=== PATIENT | female | born 1985 | race Caucasian/White ===

== ENCOUNTER → 2017-11-07 | Outpatient (CLI) | payer OTHER | END | disposition home or self-care (01) | LOC: C.LAB1850 10:55 | PROVIDERS: ATTEND Physician Assistant | DX: N92.6 Irregular menstruation, unspecified (principal) ==

== ENCOUNTER → 2017-11-07 | Outpatient (CLI) | payer OTHER | END | disposition home or self-care (01) | LOC: C.PAPS 15:43 | PROVIDERS: ATTEND Physician Assistant | DX: Z01.419 Encounter for gynecological examination (general) (routine) without abnormal findings (principal) ==

== ENCOUNTER 2021-11-02 10:02 | Inpatient (IN) ==
[2021-11-02] MEDS ORDERED: LORazepam 2 MG/1 ML VIAL ONE ×3 (10:11→17:07)
[2021-11-02] MEDS ORDERED: RAPID SEQUENCE INDUCTION BAG ONE (10:13)
[2021-11-02] MEDS ORDERED: PROPOFOL IV EMULSION 10 MG/ML 100 ML VIAL IV ONE (10:22)
[2021-11-02] MEDS ORDERED: STAT IV Infusion **Titration per Protocol STA (10:26)
[2021-11-02] MEDS ORDERED: SODIUM CHLORIDE 0.9% 500 ML IV STA (10:26)
[2021-11-02] MEDS ORDERED: propofoL 1,000 MG/100 ML VIAL IV SCH (10:30)
[2021-11-02] MEDS ORDERED: VECURONIUM BROMIDE 10 MG VIAL IV ONE ×2 (10:34→13:53)
[2021-11-02 10:37] LABS: Basophils # (auto) 0.04 K/uL (0-0.2); Basophils % (auto) 0.5 %; Eosinophils # (auto) 0.09 K/uL (0-0.5); Eosinophils % (auto) 1.1 %; Hematocrit (blood only) 39.2 % (37-47); Immature Granulocytes # (auto) 0.02 K/uL (0.00-0.02); Immature Granulocytes % (auto) 0.2 %; Lymphocytes % (auto) 23.4 %; Mean Corpuscular Hemoglobin 32.2 pg (25-34); Mean Corpuscular Hgb Conc 35.7 g/dL (32-36); Mean Corpuscular Volume 90.1 fL (80-100); Mean Platelet Volume 9.8 fL (7.4-10.4); Monocytes # (auto) 0.66 K/uL (0.11-0.59); Monocytes % (auto) 7.7 %; Neutrophils # (auto) 5.75 K/uL (1.4-6.5); Neutrophils % (auto) 67.1 %; Platelet Count 289 K/uL (130-400); RDW Coefficient of Variation 11.9 % (11.5-14.5); RDW Standard Deviation 39.2 fL (36.4-46.3); Red Blood Count 4.35 M/uL (4.2-5.4); White Blood Count 8.56 K/uL (4.8-10.8)
[2021-11-02 10:38] LABS: iSTAT Creatinine 0.7 mg/dl (0.6-1.3); iSTAT Hemoglobin 13.6 g/dl (12.0-16.0); iSTAT Ionized Calcium 1.14 mmol/l (1.12-1.32); iSTAT Potassium 3.7 mmol/L (3.3-5.0)
[2021-11-02 10:49] LABS: Prothrombin Time 10.9 Seconds (9.0-12.0)
[2021-11-02 10:59] LABS: Alanine Aminotransferase 22 U/L (7-52); Albumin Globulin Ratio 1.7 (0.9-2); Albumin Level 3.5 gm/dl (3.4-5.0); Alkaline Phosphatase 43 U/L (34-104); Anion Gap 8 (3-11); Aspartate Aminotransferase 29 U/L (13-39); BUN Creatinine Ratio 13.8 (10-20); Bilirubin,Total 0.4 mg/dl (0.2-1.0); Blood Urea Nitrogen 11 mg/dl (6-23); Calcium 8.2 mg/dl (8.5-10.1); Carbon Dioxide 23 mmol/L (21-32); Chloride 106 mmol/L (98-107); Est GFR (African American) 60.5 ml/min; Est GFR (Non-African American) 52.2 ml/min; Globulin 2.1 gm/dl (2.5-4.0); Glucose 130 mg/dl (70-99(Fasting)); Lipase 18 U/L (11-82); Potassium 3.7 mmol/L (3.5-5.1); Sodium 137 mmol/L (136-145); Total Protein 5.6 gm/dl (6.0-8.3); Troponin I < 0.03 ng/ml (0-0.04)
--- NOTE | 2021-11-02 11:01 | CT Scan Report ---
HEAD CT NONCONTRAST CT DOSE: HISTORY: Fall. head injury TECHNIQUE: Multiaxial CT images of the head were performed without the use of intravenous contrast. A utomated exposure control was utilized for this study. A dose lowering technique was utilized adheri ng to the principles of ALARA. Comparison: None. Findings: The paranasal sinuses and mastoid air cells are clear. The calvarium and skull base are int act. The ventricles and sulci are within normal limits. There is no mass, hematoma, midline shift, or acute infarct. Left frontal scalp swelling/hematoma. Impression: No acute intracranial abnormality. Left frontal scalp injury. ACT 112: Negative or not required by law. Electronically signed by: Yvan Teresa M.D. 11/02/2021 10:59 AM
--- NOTE | 2021-11-02 11:01 | CT Scan Report ---
CT OF THE CERVICAL SPINE WITHOUT CONTRAST CLINICAL HISTORY: fall COMPARISON STUDY: No previous studies for comparison. TECHNIQUE: Helical axial images of the cervical spine were obtained without IV contrast. Sagittal a nd coronal reconstructions were viewed. Automated exposure control was utilized for the study. A do se lowering technique was utilized adhering to the principles of ALARA. FINDINGS: There is reversal of the normal cervical lordosis. Vertebral body heights are maintained. N o acute cervical spine fracture or subluxation is present. There is no prevertebral edema. Facet join ts are intact. Endotracheal tube is partially imaged. C4 and C5 are partially fused. Osteophytosis a t C5-C6 is present. IMPRESSION: No acute cervical spine fracture or subluxation. ACT 112: Negative or not required by law. Electronically signed by: Richar Amaya M.D. 11/02/2021 10:59 AM
--- NOTE | 2021-11-02 11:24 | CT Scan Report ---
CT chest diagnostic wo con CT DOSE: HISTORY: Fall. Unresponsive. injury head TECHNIQUE: Multiaxial CT images of the chest were performed without contrast. A dose lowering techni que was utilized adhering to the principles of ALARA. COMPARISON: None. FINDINGS: Endotracheal tube terminates 2.5 cm from the jomar. Otherwise, the central airways are pat ent. No pneumothorax. Mild dependent changes seen within the lungs posteriorly. No pleural effusions. No fractures within the visualized osseous structures. Please refer to same day abdomen and pelvis C T for further evaluation of the abdominal structures. Normal esophagus. Normal caliber thoracic aorta . The heart is normal in size. No pericardial effusion. No mediastinal hematoma or lymphadenopathy. IMPRESSION: 1. No acute traumatic process within the chest. 2. Endotracheal tube terminates 2.5 cm from the jomar. ACT 112: Negative or not required by law. Electronically signed by: Yvan Teresa M.D. 11/02/2021 11:23 AM
--- NOTE | 2021-11-02 11:24 | CT Scan Report ---
CT abd pelvis wo con CLINICAL HISTORY: Status post fall with head injury. Patient unresponsive. COMPARISON STUDY: No previous studies for comparison. CT DOSE: TECHNIQUE: Standard CT of the Abdomen and Pelvis was performed without IV contrast. The patient did not receive oral contrast. A dose lowering technique was utilized adhering to the principles of GUSTAVO Faust. FINDINGS: This is a limited examination due to breathing motion artifact and the patient's arms being by her side. Lung base: The lung bases are clear. Abdominal cavity: There is no evidence for abdominal mass, adenopathy or ascites. Liver: The liver is homogeneous in attenuation on these limited noncontrast images..There are 3, appr oximately 1 cm low-attenuation lesions within the liver parenchyma which are suspicious for cysts. Ho wever, they cannot be fully evaluated by this study. Spleen: The spleen is homogeneous in attenuation on these limited noncontrast images. Pancreas: The pancreas is homogeneous in attenuation on these limited noncontrast images. Gall Bladder: The gallbladder is well distended with no evidence for cholelithiasis, wall thickening or pericholecystic edema.. Adrenal glands: The adrenal glands are normal in size and attenuation on these limited noncontrast im ages. Kidneys: The kidneys are homogeneous in attenuation on these limited noncontrast images. There is no evidence for gross renal mass, calculus or hydronephrosis bilaterally. Bowel: There is evidence for a small hiatal hernia. The bowel loops are normally placed within the ab domen and pelvis without evidence for dilatation or obstruction. There is no evidence for mass lesion . There is mild fecal stasis without impaction or obstruction. There are no inflammatory changes pres ent. There is no evidence for free air. The appendix is not visualized. Bladder: Bauman catheter is present within the bladder. : Uterus appears enlarged. This is also not well evaluated by this study. Vasculature: There is no evidence for focal aneurysmal dilatation of the abdominal aorta. Osseous structures: There is no acute osseous pathology. IMPRESSION: 1. Limited study due to breathing motion artifact and the patient's arms being by her side. 2. Otherwise, no definite acute intra-abdominal or pelvic abnormality on these limited noncontrast im ages. 3. Nonacute findings are delineated above. ACT 112: Negative or not required by law. Electronically signed by: Robert Stewart M.D. 11/02/2021 11:23 AM
[2021-11-02 11:33] LABS: Appearance Urine Cloudy (Clear); Bacteria Urine Automated Negative (Negative); Bilirubin Urine Negative (Negative); Blood Urine Negative (Negative); Color Urine Yellow; Glucose Urine UA Negative (Negative); Ketones Urine 1+ (Negative); Leukocyte Esterase Urine Negative (Negative); Nitrite Urine Negative (Negative); Specific Gravity Urine 1.023 (1.000-1.030); Urobilinogen Urine Negative (Negative); pH Urine >= 9.0 (4.5-7.5)
[2021-11-02 11:36] LABS: Protein Urine Trace (Negative)
[2021-11-02 11:45] LABS: Amorphous Sediment Urine Present (None Prsent)
[2021-11-02 11:46] LABS: Cast Urine Automated 0 /lpf (0-5); Mucus Urine Present (None Prsent)
[2021-11-02] MEDS: PROPOFOL BOLUS FROM BAG IV PRN ×2 (11:53→12:11)
[2021-11-02 11:55] LABS: Amphetamines+Metham, Urine Neg (Neg); Barbiturates, Urine Neg (Neg); Benzodiazepine, Urine Neg (Neg); Cocaine, Urine Neg (Neg); MDMA (Ecstacy), Urine Neg (Neg); Methadone, Urine Neg (Neg); Opiate, Urine Neg (Neg); Phencyclidine, Urine Neg (Neg)
[2021-11-02] MEDS ORDERED: MIDAZOLAM HCL 5 MG/ML 1 ML VIAL IV STA (12:29)
[2021-11-02] MEDS ORDERED: DIPHTHERIA/TETANUS/PERTUSSIS 0.5 ML SYR/VIAL IM ONE (12:33)
--- NOTE | 2021-11-02 12:51 | Critical Care Consultation ---
Date of Consultation November 02, 2021 Assessment & Plan (1) Syncope and collapse: Reason Critically Ill: Acute syncope and collapse with altered mental status/acute encephalopathy PLAN: Neuro: Acute encephalopathy -Wean sedation -Consider advanced imaging: MRI and EEG -CT scan unremarkable Cervical collar -CT C-spine within normal limits -Attempt to clinically discontinue cervical collar later Resp: Intubation to facilitate medical evaluation -minimal vent settings, patient extubated in the ED -If mental status does not improve would consider reintubation to facilitate MRI and possible lumbar puncture CV: Syncope -echocardiogram and trend troponins Fluids/Renal: Hypocarbia - trend with possible repeat later ID: Afebrile, no leukocytosis -Monitor fever curve GI/Nutrition: NPO Heme: DVT prophylaxis: SCDs Endocrine: ICU hyperglycemia protocol TSH pending Skin: -Local wound care -Tetanus updated Vascular access: PIV Code Status: Full Disposition: ICU (2) Acute encephalopathy: I have personally spent 65 minutes of critical care time in the direct management of this patient. This is a life/limb threatening event. This includes time spent evaluating patient, direct bedside care, chart review, placing orders, interpretation of diagnostic studies, discussion with consultants, patient, and/or family members regarding treatment decisions, as well as other required patient management activities. This time is exclusive of all separately billable procedures, and teaching time and separate from and in addition to any other critical care service time. History of Present Illness Reason for Consultation: Syncope with acute encephalopathy requiring intubation to facilitate work-up Requesting Physician: Damon Attending Physician: Nixon velez History of Present Illness History is obtained from ED provider, significant other at bedside, prior records. For report patient is a 35-year-old female who was in her normal state of health without significant past medical history who went for a walk with her dog this morning. Bystanders reported that the patient suddenly collapsed. It was reported there was no CPR, EMS was contacted and she required intramuscular Ativan for some chemical restraint to facilitate transport to the emergency department. While in the emergency department patient was combative and not redirectable to facilitate work-up patient was intubated and labs and CT scans were obtained. For the patient significant other at the bedside she does not have any medical problems, was not complaining of headache today, no fever, no chest pain no shortness of breath. She is a non-smoker, does not drink alcohol, does not use recreational drugs. He is uncertain of when her last menstrual period was. He is not aware of any significant family history which includes questions of seizures, sudden cardiac , from unexplained causes. He is unclear of when her last tetanus shot was. Allergies Allergy/AdvReac Type Severity Reaction Status Date / Time No Known Drug Allergies Allergy Verified 11/02/21 11:36 Home Medications Medication Instructions Recorded Confirmed Type ibuprofen 200 mg tablet 600 mg PO QID PRN 10/02/18 11/02/21 History multivitamin (Daily Multi-Vitamin) 1 tab PO DAILY 03/30/19 11/02/21 History Patient History Medical History Anemia Elevated serum hCG History of chicken pox Surgical History History of salpingectomy left- ectopic S/P wisdom tooth extraction Family History Mother Depression Ovarian cyst Grandfather (Maternal) Hyperlipidemia Hypertension Grandmother (Paternal) Breast cancer Grandmother (Maternal) Diabetes Denies family history of Ovarian cancer Colorectal cancer Social History Smoking Status: Unknown if ever smoked Hx Alcohol Use: No Hx Substance Use: No Preferred Language: [place] marital status: Feels Safe at Home: Yes Review of Systems Review of Systems: Unobtainable due to endotracheal tube Physical Exam Physical Exam: General: Sedated. Glascow Coma Scale: Eyes: 2, Verbal 1T, Motor 5, Total 8T Skin: Warm, dry. Abrasions to left orbital ridge Head: Contusion left orbital ridge Ears, nose, mouth and throat: airway obscured by endotracheal tube Cardiovascular: Normal peripheral perfusion, S1-S2, normal sinus rhythm bedside monitor Respiratory: no respiratory distress Gastrointestinal: Non distended Musculoskeletal: Small ecchymoses left upper extremity Results & Data Results & Data ([facility]) Vital Signs (Past 12 Hours) Vital Signs Temp Pulse Resp BP Pulse Ox 11/02/21 12:17 125/65 11/02/21 12:16 99 H 21 100 11/02/21 12:15 97 H 22 99 11/02/21 12:10 91 H 15 100 11/02/21 12:05 87 17 96 11/02/21 12:02 83 18 96 11/02/21 12:01 82 16 114/88 93 11/02/21 12:00 90 16 94 11/02/21 11:56 74 14 116/70 98 11/02/21 11:55 74 15 96 11/02/21 11:50 80 13 150/75 H 99 11/02/21 11:45 85 19 129/82 100 11/02/21 11:40 81 19 132/96 100 11/02/21 11:37 100 11/02/21 11:35 82 20 124/92 100 11/02/21 11:30 88 16 135/87 100 11/02/21 11:25 91 H 14 124/85 100 11/02/21 11:20 84 14 130/84 100 11/02/21 11:15 85 14 121/85 100 11/02/21 11:10 84 14 132/90 100 11/02/21 11:05 87 14 131/91 100 11/02/21 11:00 79 14 133/86 100 11/02/21 10:55 89 14 142/96 H 100 11/02/21 10:53 86 14 131/88 100 11/02/21 10:52 83 8 L 100 11/02/21 10:36 99 H 11 L 121/78 100 11/02/21 10:35 88 11 L 11/02/21 10:32 83 14 100 11/02/21 10:30 83 27 H 139/100 100 11/02/21 10:26 75 21 115/68 97 11/02/21 10:25 74 19 76 L 11/02/21 10:23 99 H 20 147/112 H 93 11/02/21 10:20 85 16 82/57 L 97 11/02/21 10:00 34.8 C L 86 22 124/69 98 Critical Care Results & Data Vital Signs (Past 12 Hours) Vital Signs Temp Pulse Resp BP Pulse Ox 11/02/21 12:17 125/65 11/02/21 12:16 99 H 21 100 11/02/21 12:15 97 H 22 99 11/02/21 12:10 91 H 15 100 11/02/21 12:05 87 17 96 11/02/21 12:02 83 18 96 11/02/21 12:01 82 16 114/88 93 11/02/21 12:00 90 16 94 11/02/21 11:56 74 14 116/70 98 11/02/21 11:55 74 15 96 11/02/21 11:50 80 13 150/75 H 99 11/02/21 11:45 85 19 129/82 100 11/02/21 11:40 81 19 132/96 100 11/02/21 11:37 100 11/02/21 11:35 82 20 124/92 100 11/02/21 11:30 88 16 135/87 100 11/02/21 11:25 91 H 14 124/85 100 11/02/21 11:20 84 14 130/84 100 11/02/21 11:15 85 14 121/85 100 11/02/21 11:10 84 14 132/90 100 11/02/21 11:05 87 14 131/91 100 11/02/21 11:00 79 14 133/86 100 11/02/21 10:55 89 14 142/96 H 100 11/02/21 10:53 86 14 131/88 100 11/02/21 10:52 83 8 L 100 11/02/21 10:36 99 H 11 L 121/78 100 11/02/21 10:35 88 11 L 11/02/21 10:32 83 14 100 11/02/21 10:30 83 27 H 139/100 100 11/02/21 10:26 75 21 115/68 97 11/02/21 10:25 74 19 76 L 11/02/21 10:23 99 H 20 147/112 H 93 11/02/21 10:20 85 16 82/57 L 97 11/02/21 10:00 34.8 C L 86 22 124/69 98 Lab & Micro Results (Past 24 Hours) RBC 4.35 M/uL (4.2-5.4) 11/02/21 WBC 8.56 K/uL (4.8-10.8) 11/02/21 Hgb 14.0 g/dL (12.0-16.0) 11/02/21 Hct 39.2 % (37-47) 11/02/21 MCV 90.1 fL (80-100) 11/02/21 MCH 32.2 pg (25-34) 11/02/21 MCHC 35.7 g/dL (32-36) 11/02/21 RDW Standard Deviation 39.2 fL (36.4-46.3) 11/02/21 RDW Coefficient of Variation 11.9 % (11.5-14.5) 11/02/21 Plt Count 289 K/uL (130-400) 11/02/21 MPV 9.8 fL (7.4-10.4) 11/02/21 Neutrophils (%) (Auto) 67.1 % 11/02/21 Lymphocytes (%) (Auto) 23.4 % 11/02/21 Monocytes # (Auto) 0.66 K/uL (0.11-0.59) H 11/02/21 Eosinophils # (Auto) 0.09 K/uL (0-0.5) 11/02/21 Immature Granulocyte % (Auto) 0.2 % 11/02/21 Neutrophils # (Auto) 5.75 K/uL (1.4-6.5) 11/02/21 Lymphocytes # (Auto) 2.00 K/uL (1.2-3.4) 11/02/21 Monocytes # (Auto) 0.66 K/uL (0.11-0.59) H 11/02/21 Eosinophils # (Auto) 0.09 K/uL (0-0.5) 11/02/21 Basophils # (Auto) 0.04 K/uL (0-0.2) 11/02/21 Immature Granulocyte # (Auto) 0.02 K/uL (0.00-0.02) 11/02/21 Na 137 mmol/L (136-145) 11/02/21 K 3.7 mmol/L (3.5-5.1) 11/02/21 Cl 106 mmol/L (98-107) 11/02/21 CO2 23 mmol/L (21-32) 11/02/21 Anion Gap 8 (3-11) 11/02/21 BUN 11 mg/dl (6-23) 11/02/21 Creatinine 0.80 mg/dl (0.6-1.2) 11/02/21 Estimated GFR ( Amer) 60.5 ml/min 11/02/21 Estimated GFR (Non-Af Amer) 52.2 ml/min 11/02/21 BUN/Creatinine Ratio 13.8 (10-20) 11/02/21 Glu 130 mg/dl (70-99(Fasting)) H 11/02/21 Ca 8.2 mg/dl (8.5-10.1) L 11/02/21 Total Bilirubin 0.4 mg/dl (0.2-1.0) 11/02/21 AST 29 U/L (13-39) 11/02/21 ALT 22 U/L (7-52) 11/02/21 Alkaline Phosphatase 43 U/L (34-104) 11/02/21 TP 5.6 gm/dl (6.0-8.3) L 11/02/21 Albumin 3.5 gm/dl (3.4-5.0) 11/02/21 Globulin 2.1 gm/dl (2.5-4.0) L 11/02/21 Albumin/Globulin Ratio 1.7 (0.9-2) 11/02/21 Calcium Level 8.2 mg/dl (8.5-10.1) L 11/02/21 10:17 11/02/21 Prothromb Time International Ratio 1.0 (0.9-1.1) 11/02/21 10:17 11/02/21 Diagnostic Findings (Past 24 Hours) Abdomen/Pelvis CT 11/02/21 10:26 CT abd pelvis wo con CLINICAL HISTORY: Status post fall with head injury. Patient unresponsive. COMPARISON STUDY: No previous studies for comparison. CT DOSE: TECHNIQUE: Standard CT of the Abdomen and Pelvis was performed without IV contrast. The patient did not receive oral contrast. A dose lowering technique was utilized adhering to the principles of ALARA. FINDINGS: This is a limited examination due to breathing motion artifact and the patient's arms being by her side. Lung base: The lung bases are clear. Abdominal cavity: There is no evidence for abdominal mass, adenopathy or ascites. Liver: The liver is homogeneous in attenuation on these limited noncontrast images..There are 3, approximately 1 cm low-attenuation lesions within the liver parenchyma which are suspicious for cysts. However, they cannot be fully evaluated by this study. Spleen: The spleen is homogeneous in attenuation on these limited noncontrast images. Pancreas: The pancreas is homogeneous in attenuation on these limited noncontrast images. Gall Bladder: The gallbladder is well distended with no evidence for cholelithiasis, wall thickening or pericholecystic edema.. Adrenal glands: The adrenal glands are normal in size and attenuation on these limited noncontrast images. Kidneys: The kidneys are homogeneous in attenuation on these limited noncontrast images. There is no evidence for gross renal mass, calculus or hydronephrosis bilaterally. Bowel: There is evidence for a small hiatal hernia. The bowel loops are normally placed within the abdomen and pelvis without evidence for dilatation or obstruction. There is no evidence for mass lesion. There is mild fecal stasis without impaction or obstruction. There are no inflammatory changes present. There is no evidence for free air. The appendix is not visualized. Bladder: Bauman catheter is present within the bladder. : Uterus appears enlarged. This is also not well evaluated by this study. Vasculature: There is no evidence for focal aneurysmal dilatation of the abdominal aorta. Osseous structures: There is no acute osseous pathology. IMPRESSION: 1. Limited study due to breathing motion artifact and the patient's arms being by her side. 2. Otherwise, no definite acute intra-abdominal or pelvic abnormality on these limited noncontrast images. 3. Nonacute findings are delineated above. ACT 112: Negative or not required by law. Electronically signed by: Robert Stewart M.D. 11/02/2021 11:[address] 11/02/21 10:26 CT OF THE CERVICAL SPINE WITHOUT CONTRAST CLINICAL HISTORY: fall COMPARISON STUDY: No previous studies for comparison. TECHNIQUE: Helical axial images of the cervical spine were obtained without IV contrast. Sagittal and coronal reconstructions were viewed. Automated exposure control was utilized for the study. A dose lowering technique was utilized adh ering to the principles of ALARA. FINDINGS: There is reversal of the normal cervical lordosis. Vertebral body heights are maintained. No acute cervical spine fracture or subluxation is present. There is no prevertebral edema. Facet joints are intact. Endotracheal tube is partially imaged. C4 and C5 are partially fused. Osteophytosis at C5-C6 is present. IMPRESSION: No acute cervical spine fracture or subluxation. ACT 112: Negative or not required by law. Electronically signed by: Richar Amaya M.D. 11/02/2021 10:[address] 11/02/21 10:26 CT chest diagnostic wo con CT DOSE: HISTORY: Fall. Unresponsive. injury head TECHNIQUE: Multiaxial CT images of the chest were performed without contrast. A dose lowering technique was utilized adhering to the principles of ALARA. COMPARISON: None. FINDINGS: Endotracheal tube terminates 2.5 cm from the jomar. Otherwise, the central airways are patent. No pneumothorax. Mild dependent changes seen within the lungs posteriorly. No pleural effusions. No fractures within the visualized osseous structures. Please refer to same day abdomen and pelvis CT for further evaluation of the abdominal structures. Normal esophagus. Normal caliber thoracic aorta. The heart is normal in size. No pericardial effusion. No mediastinal hematoma or lymphadenopathy. IMPRESSION: 1. No acute traumatic process within the chest. 2. Endotracheal tube terminates 2.5 cm from the jomar. ACT 112: Negative or not required by law. Electronically signed by: Yvan Teresa M.D. 11/02/2021 11:[address] 11/02/21 10:[address] DOSE: HISTORY: Fall. head injury TECHNIQUE: Multiaxial CT images of the head were performed without the use of intravenous contrast. Automated exposure control was utilized for this study. A dose lowering technique was utilized adhering to the principles of ALARA. Comparison: None. Findings: The paranasal sinuses and mastoid air cells are clear. The calvarium and skull base are intact. The ventricles and sulci are within normal limits. There is no mass, hematoma, midline shift, or acute infarct. Left frontal scalp swelling/hematoma. Impression: No acute intracranial abnormality. Left frontal scalp injury. ACT 112: Negative or not required by law. Electronically signed by: Yvan Teresa M.D. 11/02/2021 10:59 AM I & O Totals 24 Hours 11/01/21 11/02/21 11/03/21 06:59 06:59 06:59 Intake Total 26.265 / 26.265 Balance 26.265 / 26.265 Cumulative 11/02/21 09:46 thru 11/02/21 12:10 Intake Total 26.265 Balance 26.265 RT Ventilator Mngmt (Last Documented) Ventilator Ordered Settings Ventilator Support Mode Assist Control 11/02/21 10:32 Respiratory Rate 21 11/02/21 12:16 Ventilator Tidal Volume 500 11/02/21 10:32 Setting Minute Ventilation 7.1 11/02/21 10:32 Positive End Expiratory 5 04/08/22 10:32 Pressure Fraction of Inspired Oxygen 60 11/02/21 10:32 Inspiratory Pressure 18 11/02/21 10:32 Machine Comment Decreased to 40% after vent check 11/02/21 10:32 Ventilator - PT Measurements Respiratory Rate 21 Exhaled Tidal Volume 498 Minute Ventilation 7.1 Peak Inspiratory Airway 18 Pressure End-Tidal CO2 38 Dynamic Lung Compliance 38.31 Normal Static Lung Compliance 48.[address] Cutler at bedside, patient placed in 3L Coding Level of Care Code Critical Care 1st 30-74 mins Diagnoses Syncope and collapse R55 Acute encephalopathy G93.40
--- NOTE | 2021-11-02 12:57 | History & Physical Report ---
Date of Service November 02, 2021 Assessment & Plan (1) Syncope and collapse: (2) Acute encephalopathy: Plan: Patient is 35-year-old female with PMH ectopic in 2019 presented to ER for syncope and collapse while walking her dog today. Presented to ER confused and combative. In ER rectal temp: 34.8C, other vitals stable upon arrival. Patient with noted ecchymosis left head and face. CT head and C-spine, CT chest and CT abdomen pelvis without acute findings. Unremarkable labs, urine drug screen negative, negative EtOH level. Patient being admitted to ICU. Has been extubated in ER prior to ICU admission. Still currently sedated. Will possibly need further brain imaging, MRI or EEG Further plan per home health registered nurse Does not have PCP for routine care Pt was seen and care coordinated with Dr Hernandez. See addendum History of Present Illness Chief Complaint: Syncope Primary Care Provider: NO PCP Patient is 35-year-old female with PMH ectopic in 2019 presented to ER for syncope and collapse. Unable to obtain history from patient at this time secondary to sedation. History obtained from ER staff and patient's . It is reported patient was walking her dog today when had sudden episode of collapse per bystanders. It is reported no CPR was performed. Is reported EMS noted BSG in the 130s and patient required IM Ativan for transportation to ER. In ER patient combative and was sedated and intubated to facilitate work-up. Patient's reports patient takes multivitamin and ibuprofen as needed. Reports no tobacco, alcohol or known drug use. Denies any history of syncope or seizures in past. Denies any known family history of seizures, sudden cardiac arrest. Unknown last menstrual period. No known drug allergies reported by . Allergies Allergy/AdvReac Type Severity Reaction Status Date / Time No Known Drug Allergies Allergy Verified 11/02/21 11:36 Home Medications Medication Instructions Recorded Confirmed Type ibuprofen 200 mg tablet 600 mg PO QID PRN 10/02/18 11/02/21 History multivitamin (Daily Multi-Vitamin) 1 tab PO DAILY 03/30/19 11/02/21 History Past Med/Surg History Medical History Anemia Elevated serum hCG Hemoperitoneum History of chicken pox History of ectopic Left pelvic adnexal fluid collection Surgical History History of salpingectomy left- ectopic S/P wisdom tooth extraction Family History Mother Depression Ovarian cyst Grandfather (Maternal) Hyperlipidemia Hypertension Grandmother (Paternal) Breast cancer Grandmother (Maternal) Diabetes Denies family history of Ovarian cancer Colorectal cancer Social History Smoking Status: Never smoker Hx Alcohol Use: No Hx Substance Use: No Preferred Language: Occitan Patient Accounts Clerk Required: No Beliefs That Will Affect Care: None marital status: Current Living Situation: Spouse Feels Safe at Home: Yes Assistive Devices: None Review of Systems Review of Systems: Unobtainable due to cognitive status Physical Exam Physical Exam: General: sedated, appears WDWN Head: normocephalic, +ecchymosis and abrasion left superior orbit and left temporal region Eyes: PERRL, conjunctiva non-injected ENT: normal inspection external ears, nose, mucous membranes appear moist Neck: +c collar in place Lungs: clear, no respiratory distress, no wheezing/rhonchi/rales CV: RRR, rate 92, no murmur, no pretibial edema Abd: normal BS, soft Ext: no cyanosis, no erythema, left arm with ecchymosis Neuro: Sedated currently Skin: warm, dry Results & Data Results & Data ([facility] [place]) Vital Signs (Past 12 Hours) Vital Signs Temp Pulse Resp BP Pulse Ox 11/02/21 12:45 109 H 23 108/57 L 100 11/02/21 12:40 84 20 106/59 L 100 11/02/21 12:37 100 11/02/21 12:35 117 H 20 100 11/02/21 12:30 82 19 100 11/02/21 12:25 104 H 25 H 100 11/02/21 12:20 99 H 18 134/60 99 11/02/21 12:17 125/65 11/02/21 12:16 99 H 21 100 11/02/21 12:15 97 H 22 99 11/02/21 12:10 91 H 15 100 11/02/21 12:05 87 17 96 11/02/21 12:02 83 18 96 11/02/21 12:01 82 16 114/88 93 11/02/21 12:00 90 16 94 11/02/21 11:56 74 14 116/70 98 11/02/21 11:55 74 16 96 11/02/21 11:50 80 13 150/75 H 99 11/02/21 11:45 85 19 129/82 100 11/02/21 11:40 81 19 132/96 100 11/02/21 11:37 100 11/02/21 11:35 82 20 124/92 100 11/02/21 11:30 88 16 135/87 100 11/02/21 11:25 91 H 14 124/85 100 11/02/21 11:20 84 14 130/84 100 11/02/21 11:15 85 14 121/85 100 11/02/21 11:10 84 14 132/90 100 11/02/21 11:05 87 14 131/91 100 11/02/21 11:00 79 14 133/86 100 11/02/21 10:55 89 14 142/96 H 100 11/02/21 10:53 86 14 131/88 100 11/02/21 10:52 83 16 100 11/02/21 10:36 99 H 16 121/78 100 11/02/21 10:35 88 16 100 11/02/21 10:32 83 14 100 11/02/21 10:30 83 24 139/100 100 11/02/21 10:26 75 20 115/68 97 11/02/21 10:25 74 20 96 11/02/21 10:23 99 H 20 147/112 H 93 11/02/21 10:20 85 16 82/57 L 97 11/02/21 10:00 34.8 C L 86 22 124/69 98 Laboratory Results Short CBC 11/02/21 Range/Units 10:17 WBC 8.56 (4.8-10.8) K/uL Hgb 14.0 (12.0-16.0) g/dL Hct 39.2 (37-47) % Plt Count 289 (130-400) K/uL BMP 11/02/21 10:17 Sodium 137 Potassium 3.7 Chloride 106 Carbon Dioxide 23 BUN 11 Creatinine 0.80 Glucose 130 H Calcium 8.2 L Cardiac Enzymes 11/02/21 Range/Units 10:17 Troponin I < 0.03 (0-0.04) ng/ml Liver Function 11/02/21 Range/Units 10:17 Total Bilirubin 0.4 (0.2-1.0) mg/dl AST 29 (13-39) U/L ALT 22 (7-52) U/L Alkaline Phosphatase 43 (34-104) U/L Albumin 3.5 (3.4-5.0) gm/dl Urine 11/02/21 Range/Units 10:30 Urine Color Yellow Urine Appearance Cloudy A (Clear) Urine pH >= 9.0 H (4.5-7.5) Ur Specific [place] 1.023 (1.000-1.030) Urine Protein Trace H (Negative) Urine Glucose (UA) Negative (Negative) Diagnostic Findings Abdomen/Pelvis CT 11/02/21 10:26 CT abd pelvis wo con CLINICAL HISTORY: Status post fall with head injury. Patient unresponsive. COMPARISON STUDY: No previous studies for comparison. CT DOSE: TECHNIQUE: Standard CT of the Abdomen and Pelvis was performed without IV contrast. The patient did not receive oral contrast. A dose lowering technique was utilized adhering to the principles of ALARA. FINDINGS: This is a limited examination due to breathing motion artifact and the patient's arms being by her side. Lung base: The lung bases are clear. Abdominal cavity: There is no evidence for abdominal mass, adenopathy or ascites. Liver: The liver is homogeneous in attenuation on these limited noncontrast images..There are 3, approximately 1 cm low-attenuation lesions within the liver parenchyma which are suspicious for cysts. However, they cannot be fully evaluated by this study. Spleen: The spleen is homogeneous in attenuation on these limited noncontrast images. Pancreas: The pancreas is homogeneous in attenuation on these limited noncontrast images. Gall Bladder: The gallbladder is well distended with no evidence for cholelithiasis, wall thickening or pericholecystic edema.. Adrenal glands: The adrenal glands are normal in size and attenuation on these limited noncontrast images. Kidneys: The kidneys are homogeneous in attenuation on these limited noncontrast images. There is no evidence for gross renal mass, calculus or hydronephrosis bilaterally. Bowel: There is evidence for a small hiatal hernia. The bowel loops are normally placed within the abdomen and pelvis without evidence for dilatation or obstruction. There is no evidence for mass lesion. There is mild fecal stasis without impaction or obstruction. There are no inflammatory changes present. There is no evidence for free air. The appendix is not visualized. Bladder: Bauman catheter is present within the bladder. : Uterus appears enlarged. This is also not well evaluated by this study. Vasculature: There is no evidence for focal aneurysmal dilatation of the abdominal aorta. Osseous structures: There is no acute osseous pathology. IMPRESSION: 1. Limited study due to breathing motion artifact and the patient's arms being by her side. 2. Otherwise, no definite acute intra-abdominal or pelvic abnormality on these limited noncontrast images. 3. Nonacute findings are delineated above. ACT 112: Negative or not required by law. Electronically signed by: Robert Stewart M.D. 11/02/2021 11:[address] 11/02/21 10:26 CT OF THE CERVICAL SPINE WITHOUT CONTRAST CLINICAL HISTORY: fall COMPARISON STUDY: No previous studies for comparison. TECHNIQUE: Helical axial images of the cervical spine were obtained without IV contrast. Sagittal and coronal reconstructions were viewed. Automated exposure control was utilized for the study. A dose lowering technique was utilized adhering to the principles of ALARA. FINDINGS: There is reversal of the normal cervical lordosis. Vertebral body heights are maintained. No acute cervical spine fracture or subluxation is present. There is no prevertebral edema. Facet joints are intact. Endotracheal tube is partially imaged. C4 and C5 are partially fused. Osteophytosis at C5-C6 is present. IMPRESSION: No acute cervical spine fracture or subluxation. ACT 112: Negative or not required by law. Electronically signed by: Richar Amaya M.D. 11/02/2021 10:[address] 11/02/21 10:26 CT chest diagnostic wo con CT DOSE: HISTORY: Fall. Unresponsive. injury head TECHNIQUE: Multiaxial CT images of the chest were performed without contrast. A dose lowering technique was utilized adhering to the principles of ALARA. COMPARISON: None. FINDINGS: Endotracheal tube terminates 2.5 cm from the jomar. Otherwise, the central airways are patent. No pneumothorax. Mild dependent changes seen within the lungs posteriorly. No pleural effusions. No fractures within the visualized osseous structures. Please refer to same day abdomen and pelvis CT for further evaluation of the abdominal structures. Normal esophagus. Normal caliber thoracic aorta. The heart is normal in size. No pericardial effusion. No mediastinal hematoma or lymphadenopathy. IMPRESSION: 1. No acute traumatic process within the chest. 2. Endotracheal tube terminates 2.5 cm from the jomar. ACT 112: Negative or not required by law. Electronically signed by: Yvan Teresa M.D. 11/02/2021 11:[address] 11/02/21 10:[address] DOSE: HISTORY: Fall. head injury TECHNIQUE: Multiaxial CT images of the head were performed without the use of intravenous contrast. Automated exposure control was utilized for this study. A dose lowering technique was utilized adhering to the principles of ALARA. Comparison: None. Findings: The paranasal sinuses and mastoid air cells are clear. The calvarium and skull base are intact. The ventricles and sulci are within normal limits. There is no mass, hematoma, midline shift, or acute infarct. Left frontal scalp swelling/hematoma. Impression: No acute intracranial abnormality. Left frontal scalp injury. ACT 112: Negative or not required by law. Electronically signed by: Yvan Teresa M.D. 11/02/2021 10:59 AM Code Status & VTE Plan VTE Prophylaxis Plan VTE Prophylaxis will be ordered: Yes Supervising Physician Co-Signing Physician Notes Care coordinated with Preethi Cuellar PA-C. Agree with above note. Patient seen and examined. Please refer to her notes for full details. Vital signs reviewed. Physical exam: General exam: Drowsy CVS: S1 and S2 heard, regular rate and rhythm, no murmurs. RS: Clear to auscultation, no wheezing or crackles. ABD: Soft, bowel sounds present, nontender, no distention. WAGON PERSON: Drowsy, moving upper extremities EXT: No edema, no erythema. Labs: Reviewed. Assessment and plan: 35F with no significant PMH while walking her dog today suddenly collapsed. IN the Er patient was combative was intubated to facilitate testing. Initial CT head, CT chest,Ct abd/pelvis labs, urine drug screen e unremarkable. She was later extubated. MRI head and Brain venography unremarkable. Follow EEG. Currently hemodynamically stable. Etiology of encephalopathy and syncope unclear. Continue to Monitor in ICU. Other diagnosis and plan of care as per Preethi Cuellar PA-C. Norbert fry MD.
--- NOTE | 2021-11-02 13:31 | Emergency Department Note ---
History of Present Illness General Chief complaint: Fall History of Present Illness 35-year-old female presents to the ED with a chief complaint of syncope/collapse. The patient was reportedly walking her dog, per EMS. EMS report that there was a witness that saw her collapse while walking the dog. There was no seizure activity. The patient upon EMS arrival was added. They were able to give her 2 mg of IM Ativan and transported her here. She was still combative on arrival. EMS report a prehospital blood sugar of 136. They found her to have a normal sinus rhythm. No known past medical history. After the arrived, sometime later, she does confirm no past medical history. She donated some plasma yesterday. She has been feeling well. He states that she complained of feeling a little tired last night but otherwise this morning she was doing fine. She has no complaints this morning when he left for work. She was unable to provide any additional information upon her arrival as she was combative and could not answer any questions Home Medications Medication Instructions Recorded Confirmed Type ibuprofen 200 mg tablet 600 mg PO QID PRN 10/02/18 11/02/21 History multivitamin (Daily Multi-Vitamin) 1 tab PO DAILY 03/30/19 11/02/21 History Allergies Allergy/AdvReac Type Severity Reaction Status Date / Time No Known Drug Allergies Allergy Verified 11/02/21 11:36 Past Med/Surg History Medical History Anemia Elevated serum hCG Hemoperitoneum History of chicken pox History of ectopic Left pelvic adnexal fluid collection Surgical History History of salpingectomy left- ectopic S/P wisdom tooth extraction Family History Mother Depression Ovarian cyst Grandfather (Maternal) Hyperlipidemia Hypertension Grandmother (Paternal) Breast cancer Grandmother (Maternal) Diabetes Denies family history of Ovarian cancer Colorectal cancer Social History Smoking Status: Never smoker Hx Alcohol Use: No Hx Substance Use: No Preferred Language: Greenlandic Surveillance Investigator Required: No Beliefs That Will Affect Care: None marital status: Current Living Situation: Spouse Other Information That Helps Us Care for You: No Feels Safe at Home: Yes Assistive Devices: None Review of Systems Unobtainable due to cognitive status Physical Exam Vital Signs Vital Signs - 24 hr 11/02/21 10:00 11/02/21 10:20 11/02/21 10:23 Temperature 34.8 C L Temperature Source Rectal Pulse Rate 86 85 99 H Pulse Rate from SpO2 Sensor 77 90 Pulse Rhythm Regular Pulse Strength Normal Respiratory Rate 22 16 20 Respiratory Effort / Characteristics Non-Labored Spontaneous Respiratory Depth Normal Respiratory Pattern Regular Blood Pressure 124/69 82/57 L 147/112 H Blood Pressure Mean 87 65 123 Blood Pressure Position Lying Pulse Oximetry 98 97 93 Oxygen Delivery Method Room Air Room Air Ambu-Bag Oxygen Flow Rate 25 Fraction of Inspired Oxygen Sepsis Recent Fever Within 48 Hours No Sepsis New/Unexplained Change in Mental Status N/A Sepsis Action Taken by Nursing Physician Notified End-Tidal CO2 11/02/21 10:25 11/02/21 10:26 11/02/21 10:30 Temperature Temperature Source Pulse Rate 74 75 83 Pulse Rate from SpO2 Sensor 74 80 83 Pulse Rhythm Pulse Strength Respiratory Rate 20 20 24 Respiratory Effort / Characteristics Respiratory Depth Respiratory Pattern Blood Pressure 115/68 139/100 Blood Pressure Mean 83 113 Blood Pressure Position Pulse Oximetry 96 97 100 Oxygen Delivery Method Mechanical Vent Mechanical Vent Mechanical Vent Oxygen Flow Rate Fraction of Inspired Oxygen 40 40 40 Sepsis Recent Fever Within 48 Hours Sepsis New/Unexplained Change in Mental Status Sepsis Action Taken by Nursing End-Tidal CO2 35 36 38 11/02/21 10:32 11/02/21 10:35 11/02/21 10:36 Temperature Temperature Source Pulse Rate 83 88 99 H Pulse Rate from SpO2 Sensor 91 H Pulse Rhythm Pulse Strength Respiratory Rate 14 16 16 Respiratory Effort / Characteristics Respiratory Depth Respiratory Pattern Blood Pressure 121/78 Blood Pressure Mean 92 Blood Pressure Position Pulse Oximetry 100 100 100 Oxygen Delivery Method Mechanical Vent Mechanical Vent Oxygen Flow Rate Fraction of Inspired Oxygen 60 40 40 Sepsis Recent Fever Within 48 Hours Sepsis New/Unexplained Change in Mental Status Sepsis Action Taken by Nursing End-Tidal CO2 35 36 38 11/02/21 10:52 11/02/21 10:53 11/02/21 10:55 Temperature Temperature Source Pulse Rate 83 86 89 Pulse Rate from SpO2 Sensor 81 82 90 Pulse Rhythm Pulse Strength Respiratory Rate 16 14 14 Respiratory Effort / Characteristics Respiratory Depth Respiratory Pattern Blood Pressure 131/88 142/96 H Blood Pressure Mean 102 111 Blood Pressure Position Pulse Oximetry 100 100 100 Oxygen Delivery Method Mechanical Vent Mechanical Vent Mechanical Vent Oxygen Flow Rate Fraction of Inspired Oxygen 40 40 40 Sepsis Recent Fever Within 48 Hours Sepsis New/Unexplained Change in Mental Status Sepsis Action Taken by Nursing End-Tidal CO2 37 38 37 11/02/21 11:00 11/02/21 11:05 11/02/21 11:10 Temperature Temperature Source Pulse Rate 79 87 84 Pulse Rate from SpO2 Sensor 78 89 81 Pulse Rhythm Pulse Strength Respiratory Rate 14 14 14 Respiratory Effort / Characteristics Respiratory Depth Respiratory Pattern Blood Pressure 133/86 131/91 132/90 Blood Pressure Mean 101 104 104 Blood Pressure Position Pulse Oximetry 100 100 100 Oxygen Delivery Method Mechanical Vent Mechanical Vent Mechanical Vent Oxygen Flow Rate Fraction of Inspired Oxygen 40 40 40 Sepsis Recent Fever Within 48 Hours Sepsis New/Unexplained Change in Mental Status Sepsis Action Taken by Nursing End-Tidal CO2 35 35 35 11/02/21 11:15 11/02/21 11:20 11/02/21 11:25 Temperature Temperature Source Pulse Rate 85 84 91 H Pulse Rate from SpO2 Sensor 88 86 85 Pulse Rhythm Pulse Strength Respiratory Rate 14 14 14 Respiratory Effort / Characteristics Respiratory Depth Respiratory Pattern Blood Pressure 121/85 130/84 124/85 Blood Pressure Mean 97 99 98 Blood Pressure Position Pulse Oximetry 100 100 100 Oxygen Delivery Method Mechanical Vent Mechanical Vent Mechanical Vent Oxygen Flow Rate Fraction of Inspired Oxygen 40 40 40 Sepsis Recent Fever Within 48 Hours Sepsis New/Unexplained Change in Mental Status Sepsis Action Taken by Nursing End-Tidal CO2 36 36 35 11/02/21 11:30 11/02/21 11:35 11/02/21 11:37 Temperature Temperature Source Pulse Rate 88 82 Pulse Rate from SpO2 Sensor 82 86 Pulse Rhythm Pulse Strength Respiratory Rate 16 20 Respiratory Effort / Characteristics Respiratory Depth Respiratory Pattern Blood Pressure 135/87 124/92 Blood Pressure Mean 103 102 Blood Pressure Position Pulse Oximetry 100 100 100 Oxygen Delivery Method Mechanical Vent Mechanical Vent Oxygen Flow Rate Fraction of Inspired Oxygen 40 40 Sepsis Recent Fever Within 48 Hours Sepsis New/Unexplained Change in Mental Status Sepsis Action Taken by Nursing End-Tidal CO2 37 35 11/02/21 11:40 11/02/21 11:45 11/02/21 11:50 Temperature Temperature Source Pulse Rate 81 85 80 Pulse Rate from SpO2 Sensor 82 90 73 Pulse Rhythm Pulse Strength Respiratory Rate 19 19 13 Respiratory Effort / Characteristics Respiratory Depth Respiratory Pattern Blood Pressure 132/96 129/82 150/75 H Blood Pressure Mean 108 97 100 Blood Pressure Position Pulse Oximetry 100 100 99 Oxygen Delivery Method Mechanical Vent Mechanical Vent Mechanical Vent Oxygen Flow Rate Fraction of Inspired Oxygen 40 40 40 Sepsis Recent Fever Within 48 Hours Sepsis New/Unexplained Change in Mental Status Sepsis Action Taken by Nursing End-Tidal CO2 36 35 36 11/02/21 11:55 11/02/21 11:56 11/02/21 12:00 Temperature Temperature Source Pulse Rate 74 74 90 Pulse Rate from SpO2 Sensor 72 58 L 84 Pulse Rhythm Pulse Strength Respiratory Rate 16 14 16 Respiratory Effort / Characteristics Respiratory Depth Respiratory Pattern Blood Pressure 116/70 Blood Pressure Mean 85 Blood Pressure Position Pulse Oximetry 96 98 94 Oxygen Delivery Method Mechanical Vent Mechanical Vent Mechanical Vent Oxygen Flow Rate Fraction of Inspired Oxygen 40 40 40 Sepsis Recent Fever Within 48 Hours Sepsis New/Unexplained Change in Mental Status Sepsis Action Taken by Nursing End-Tidal CO2 37 35 36 11/02/21 12:01 11/02/21 12:02 11/02/21 12:05 Temperature Temperature Source Pulse Rate 82 83 87 Pulse Rate from SpO2 Sensor 89 70 Pulse Rhythm Regular Pulse Strength Respiratory Rate 16 18 17 Respiratory Effort / Characteristics Respiratory Depth Respiratory Pattern Blood Pressure 114/88 Blood Pressure Mean 96 Blood Pressure Position Pulse Oximetry 93 96 96 Oxygen Delivery Method Mechanical Vent Mechanical Vent Mechanical Vent Oxygen Flow Rate Fraction of Inspired Oxygen 40 40 Sepsis Recent Fever Within 48 Hours Sepsis New/Unexplained Change in Mental Status Sepsis Action Taken by Nursing End-Tidal CO2 36 37 11/02/21 12:10 11/02/21 12:15 11/02/21 12:16 Temperature Temperature Source Pulse Rate 91 H 97 H 99 H Pulse Rate from SpO2 Sensor 93 H 98 H 98 H Pulse Rhythm Pulse Strength Respiratory Rate 15 22 21 Respiratory Effort / Characteristics Respiratory Depth Respiratory Pattern Blood Pressure Blood Pressure Mean Blood Pressure Position Pulse Oximetry 100 99 100 Oxygen Delivery Method Mechanical Vent Mechanical Vent Mechanical Vent Oxygen Flow Rate Fraction of Inspired Oxygen 40 40 40 Sepsis Recent Fever Within 48 Hours Sepsis New/Unexplained Change in Mental Status Sepsis Action Taken by Nursing End-Tidal CO2 40 39 38 11/02/21 12:17 11/02/21 12:20 11/02/21 12:25 Temperature Temperature Source Pulse Rate 99 H 104 H Pulse Rate from SpO2 Sensor 97 H 104 H Pulse Rhythm Pulse Strength Respiratory Rate 18 25 H Respiratory Effort / Characteristics Respiratory Depth Respiratory Pattern Blood Pressure 125/65 134/60 Blood Pressure Mean 85 84 Blood Pressure Position Pulse Oximetry 99 100 Oxygen Delivery Method Mechanical Vent Mechanical Vent Oxygen Flow Rate Fraction of Inspired Oxygen 40 40 Sepsis Recent Fever Within 48 Hours Sepsis New/Unexplained Change in Mental Status Sepsis Action Taken by Nursing End-Tidal CO2 44 41 11/02/21 12:30 11/02/21 12:35 11/02/21 12:37 Temperature Temperature Source Pulse Rate 82 117 H Pulse Rate from SpO2 Sensor 93 H 114 H Pulse Rhythm Pulse Strength Respiratory Rate 19 20 Respiratory Effort / Characteristics Respiratory Depth Respiratory Pattern Blood Pressure Blood Pressure Mean Blood Pressure Position Pulse Oximetry 100 100 100 Oxygen Delivery Method Mechanical Vent Mechanical Vent Nasal Cannula Oxygen Flow Rate 3 Fraction of Inspired Oxygen 40 40 Sepsis Recent Fever Within 48 Hours Sepsis New/Unexplained Change in Mental Status Sepsis Action Taken by Nursing End-Tidal CO2 44 42 11/02/21 12:40 11/02/21 12:45 Temperature Temperature Source Pulse Rate 84 109 H Pulse Rate from SpO2 Sensor 84 110 H Pulse Rhythm Pulse Strength Respiratory Rate 20 23 Respiratory Effort / Characteristics Respiratory Depth Respiratory Pattern Blood Pressure 106/59 L 108/57 L Blood Pressure Mean 74 74 Blood Pressure Position Pulse Oximetry 100 100 Oxygen Delivery Method Nasal Cannula Nasal Cannula Oxygen Flow Rate 3 3 Fraction of Inspired Oxygen Sepsis Recent Fever Within 48 Hours Sepsis New/Unexplained Change in Mental Status Sepsis Action Taken by Nursing End-Tidal CO2 CONSTITUTIONAL/VITAL SIGNS: Reviewed / noted above. GENERAL: When the patient arrived, she had a fair bit of blood on her weight shirt. EMS states that that came from the left side of the head. Patient was noncooperative and combative and would not answer any questions. INTEGUMENTARY: Warm, dry, and [place]. HEAD: Normocephalic. Abrasion/tiny laceration to the left temporal area. Surrounding the laceration was a contusion/hematoma. Bleeding stopped by the time she arrived. EYES: without scleral icterus or trauma. Pupils equal and responsive to light. ENT/OROPHARYNX: clear and moist. Invisaline dental guard in place. LYMPHADENOPATHY/NECK: Is supple without lymphadenopathy or meningismus. RESPIRATORY: Clear to auscultation bilaterally. No increased work of breathing. CARDIOVASCULAR: Regular rate and rhythm. GI/ABDOMEN: Soft and nontender. No organomegaly or pulsatile mass. EXTREMITIES: Warm and well perfused. Minor abrasions noted to the lower extremities particularly in the left lower extremity and left hip. There was also a small bruise in the left shoulder. NEUROLOGICAL: Moving all 4 extremities. Patient was combative. Noncooperative. Not following commands. She will not answer any questions. Did not recognize her dog when it was brought in the room. MUSCULOSKELETAL: Normally developed with good muscle tone. TRIAGE NURSING DOCUMENTATION REVIEWED. Procedures Intubation Time out performed: Yes sedative: Etomidate Mg Given: 20 paralytic: Succinylcholine Mg Given: 100 Laryngoscope: fiber optic video scope ET Tube Size: 7 ET Tube Uncuffed: No Tube Secured Depth (cm): 22 Tube Secured Location: lips Tube Placement Confirmation: visualized tube passing through cords, equal breath sounds bilaterally, no breath sounds over epigastrium and confirmation by capnometry Patient Tolerated Procedure: well and no complications Intubation Complications: none Laceration Laceration 1: Site: face Side (If applicable): left Size (cm): 3 Description: linear Depth: simple, single layer Pre-repair: wound explored Skin layer closed with: nylon Size (cm): 5-0 Number of sutures: 2 Technique: simple, interrupted Course Administered Medications Discontinued Medications Diphtheria/Pertussis/Tetanus Vacc (Diphtheria/Tetanus/Pertussis 0.5 Ml Syr/Vial) Confirm Administered Dose 0.5 ml IM .STK-MED ONE Stop: 11/02/21 12:34 Last Admin: 11/02/21 12:55 Dose: 0.5 ml Documented by: [id number] Propofol (Diprivan) 1,000 mg in 100 mls @ 15.36 mls/hr IV .Q6H31M [facility]; Protocol Stop: 11/05/21 10:29 Last Titration: 11/02/21 12:37 Dose: 0 mcg/kg/min, 0 mls/hr Documented by: [id number] Titration: 11/02/21 12:10 Dose: 50 mcg/kg/min, 19.2 mls/hr Documented by: [id number] Titration: 11/02/21 11:43 Dose: 45 mcg/kg/min, 17.3 mls/hr Documented by: [id number] Titration: 11/02/21 10:37 Dose: 40 mcg/kg/min, 15.4 mls/hr Documented by: [id number] Admin: 11/02/21 10:25 Dose: 20 mcg/kg/min, 7.7 mls/hr Documented by: [id number] Cosigned by: [id number] Sodium Chloride (Nss) 500 mls @ 999 mls/hr IV .Q31M STA Stop: 11/02/21 10:56 Last Infusion: 11/02/21 10:50 Dose: 0 mls/hr Documented by: [id number] Admin: 11/02/21 10:20 Dose: 999 mls/hr Documented by: [id number] Lorazepam (Lorazepam 2 Mg/1 Ml Vial) Confirm Administered Dose 2 mg .ROUTE .STK- MED ONE Stop: 11/02/21 10:12 Last Admin: 11/02/21 10:12 Dose: 2 mg Documented by: [id number] Lorazepam (Lorazepam 2 Mg/1 Ml Vial) Confirm Administered Dose 2 mg .ROUTE .STK- MED ONE Stop: 11/02/21 12:14 Last Admin: 11/02/21 12:17 Dose: 2 mg Documented by: [id number] Midazolam HCl (Midazolam Hcl 5 Mg/Ml 1 Ml Vial) 5 mg IV NOW STA Stop: 11/02/21 12:30 Last Admin: 11/02/21 12:56 Dose: Not Given Documented by: [id number] Miscellaneous (Rapid Sequence Induction Bag) Confirm Administered Dose 1 ea .ROUTE .STK-MED ONE Stop: 11/02/21 10:14 Last Admin: 11/02/21 10:20 Dose: 1 ea Documented by: [id number] Miscellaneous (Stat Iv Infusion Titration Per Protocol) 1 ea N/A NOW STA Stop: 11/02/21 10:27 Last Admin: 11/02/21 10:25 Dose: 1 ea Documented by: [id number] Propofol (Propofol Iv Emulsion 10 Mg/Ml 100 Ml Vial) Confirm Administered Dose 1,000 mg IV .STK-MED ONE Stop: 11/02/21 10:23 Last Admin: 11/02/21 11:31 Dose: Not Given Documented by: [id number] Propofol (Propofol Bolus From Bag) 20 mg IV Q5M PRN PRN Reason: Sedation Stop: 11/05/21 10:25 Last Admin: 11/02/21 12:11 Dose: 20 mg Documented by: [id number] Cosigned by: [id number] Admin: 11/02/21 11:53 Dose: 20 mg Documented by: [id number] Cosigned by: [id number] Vecuronium [place] (Vecuronium [place] 10 Mg Vial) Confirm Administered Dose 10 mg IV .STK-MED ONE Stop: 11/02/21 10:35 Last Admin: 11/02/21 10:37 Dose: 10 mg Documented by: [id number] Cosigned by: [id number] Critical Care Time Critical Care Time: Yes Total Critical Care Time: 45 I have personally spent 45 minutes of critical care time in the direct management of this patient. This includes bedside care, interpretation of diagnostic studies, and testing, discussion with consultants, patient, and family members, and other required patient management activities. This 45 minutes is in excess of all separately billable procedures. Medical Decision Making Medical Records Attestation: I reviewed the patient's medical records. Home Medications Current Medication List: was personally reviewed by me Laboratory Data Attestation: I reviewed the patient's lab results. Result diagrams: 11/02/21 10:17 11/02/21 10:17 Lab Results 11/02/21 11/02/21 11/02/21 Range/Units 10:17 10:17 10:17 WBC (4.8-10.8) K/uL RBC (4.2-5.4) M/uL Hgb (12.0-16.0) g/dL POC Hgb (12.0-16.0) g/dl Hct (37-47) % POC Hct (37-47) % MCV (80-100) fL MCH (25-34) pg MCHC (32-36) g/dL RDW Std Deviation (36.4-46.3) fL RDW Coeff of Nini (11.5-14.5) % Plt Count (130-400) K/uL MPV (7.4-10.4) fL Immature Gran % (Auto) % Neut % (Auto) % Lymph % (Auto) % Jerome % (Auto) % Eos % (Auto) % Baso % (Auto) % Neut # (Auto) (1.4-6.5) K/uL Lymph # (Auto) (1.2-3.4) K/uL Jerome # (Auto) (0.11-0.59) K/uL Eos # (Auto) (0-0.5) K/uL Baso # (Auto) (0-0.2) K/uL Immature Gran # (Auto) (0.00-0.02) K/uL PT 10.9 (9.0-12.0) Seconds INR 1.0 (0.9-1.1) POC Sodium (135-144) mmol/L Sodium 137 (136-145) mmol/L POC Potassium (3.3-5.0) mmol/L Potassium 3.7 (3.5-5.1) mmol/L POC Chloride (101-112) mmol/L Chloride 106 (98-107) mmol/L Carbon Dioxide 23 (21-32) mmol/L POC Total CO2 (24-31) mmol/L Anion Gap 8 (3-11) POC Anion Gap (16-25) mmol/L POC BUN (7-18) mg/dl BUN 11 (6-23) mg/dl Creatinine 0.80 (0.6-1.2) mg/dl POC Creatinine (0.6-1.3) mg/dl Est Cr Clr Drug Dosing Not Reportable Est GFR ( Amer) 60.5 ml/min Est GFR (Non-Af Amer) 52.2 ml/min BUN/Creatinine Ratio 13.8 (10-20) Glucose 130 H (70-99(Fasting)) mg/dl POC Glucose (other) (70-99) mg/dl Calcium 8.2 L (8.5-10.1) mg/dl POC Ioniz Calcium Hay (1.12-1.32) mmol/l Total Bilirubin 0.4 (0.2-1.0) mg/dl AST 29 (13-39) U/L ALT 22 (7-52) U/L Alkaline Phosphatase 43 (34-104) U/L Troponin I < 0.03 (0-0.04) ng/ml Total Protein 5.6 L (6.0-8.3) gm/dl Albumin 3.5 (3.4-5.0) gm/dl Globulin 2.1 L (2.5-4.0) gm/dl Albumin/Globulin Ratio 1.7 (0.9-2) Lipase 18 (11-82) U/L Urine Color Urine Appearance (Clear) Urine pH (4.5-7.5) Ur Specific [place] (1.000-1.030) Urine Protein (Negative) Urine Glucose (UA) (Negative) Urine Ketones (Negative) Urine Blood (Negative) Urine Nitrite (Negative) Urine Bilirubin (Negative) Urine Urobilinogen (Negative) Ur Leukocyte Esterase (Negative) Urine WBC (Auto) (0-5) /hpf Urine RBC (Auto) (0-4) /hpf U Hyaline Cast (Auto) (0-5) /lpf U Epithel Cells (Auto) (0-5) /lpf Urine Bacteria (Auto) (Negative) Ur Renal Epithelial Cell Amorphous Sediment (None Prsent) Urine Mucus (None Prsent) POC Ur Test (NEG) Urine Opiates Screen (Neg) Ur Methadone, Qual (Neg) Urine Barbiturates (Neg) Ur Phencyclidine (PCP) (Neg) U Amphetamin/Meth Scrn (Neg) MDMA (Ecstasy) Screen (Neg) U Benzodiazepines Scrn (Neg) Ur Cocaine Metabolite (Neg) U Marijuana (THC) Screen (Neg) Ethyl Alcohol mg/dL < 10.0 (<10.0) mg/dl 11/02/21 11/02/21 11/02/21 Range/Units 10:17 10:24 10:30 WBC 8.56 (4.8-10.8) K/uL RBC 4.35 (4.2-5.4) M/uL Hgb 14.0 (12.0-16.0) g/dL POC Hgb 13.6 (12.0-16.0) g/dl Hct 39.2 (37-47) % POC Hct 40 (37-47) % MCV 90.1 (80-100) fL MCH 32.2 (25-34) pg MCHC 35.7 (32-36) g/dL RDW Std Deviation 39.2 (36.4-46.3) fL RDW Coeff of Nini 11.9 (11.5-14.5) % Plt Count 289 (130-400) K/uL MPV 9.8 (7.4-10.4) fL Immature Gran % (Auto) 0.2 % Neut % (Auto) 67.1 % Lymph % (Auto) 23.4 % Jerome % (Auto) 7.7 % Eos % (Auto) 1.1 % Baso % (Auto) 0.5 % Neut # (Auto) 5.75 (1.4-6.5) K/uL Lymph # (Auto) 2.00 (1.2-3.4) K/uL Jerome # (Auto) 0.66 H (0.11-0.59) K/uL Eos # (Auto) 0.09 (0-0.5) K/uL Baso # (Auto) 0.04 (0-0.2) K/uL Immature Gran # (Auto) 0.02 (0.00-0.02) K/uL PT (9.0-12.0) Seconds INR (0.9-1.1) POC Sodium 139 (135-144) mmol/L Sodium (136-145) mmol/L POC Potassium 3.7 (3.3-5.0) mmol/L Potassium (3.5-5.1) mmol/L POC Chloride 102 (101-112) mmol/L Chloride (98-107) mmol/L Carbon Dioxide (21-32) mmol/L POC Total CO2 20 L (24-31) mmol/L Anion Gap (3-11) POC Anion Gap 21.0 (16-25) mmol/L POC BUN 10 (7-18) mg/dl BUN (6-23) mg/dl Creatinine (0.6-1.2) mg/dl POC Creatinine 0.7 (0.6-1.3) mg/dl Est Cr Clr Drug Dosing Est GFR ( Amer) ml/min Est GFR (Non-Af Amer) ml/min BUN/Creatinine Ratio (10-20) Glucose (70-99(Fasting)) mg/dl POC Glucose (other) 130 H (70-99) mg/dl Calcium (8.5-10.1) mg/dl POC Ioniz Calcium Hay 1.14 (1.12-1.32) mmol/l Total Bilirubin (0.2-1.0) mg/dl AST (13-39) U/L ALT (7-52) U/L Alkaline Phosphatase (34-104) U/L Troponin I (0-0.04) ng/ml Total Protein (6.0-8.3) gm/dl Albumin (3.4-5.0) gm/dl Globulin (2.5-4.0) gm/dl Albumin/Globulin Ratio (0.9-2) Lipase (11-82) U/L Urine Color Yellow Urine Appearance Cloudy A (Clear) Urine pH >= 9.0 H (4.5-7.5) Ur Specific [place] 1.023 (1.000-1.030) Urine Protein Trace H (Negative) Urine Glucose (UA) Negative (Negative) Urine Ketones 1+ H (Negative) Urine Blood Negative (Negative) Urine Nitrite Negative (Negative) Urine Bilirubin Negative (Negative) Urine Urobilinogen Negative (Negative) Ur Leukocyte Esterase Negative (Negative) Urine WBC (Auto) 1-5 (0-5) /hpf Urine RBC (Auto) 5-10 H (0-4) /hpf U Hyaline Cast (Auto) 0 (0-5) /lpf U Epithel Cells (Auto) 10-20 H (0-5) /lpf Urine Bacteria (Auto) Negative (Negative) Ur Renal Epithelial Cell Not Reportable Amorphous Sediment Present A (None Prsent) Urine Mucus Present A (None Prsent) POC Ur Test (NEG) Urine Opiates Screen (Neg) Ur Methadone, Qual (Neg) Urine Barbiturates (Neg) Ur Phencyclidine (PCP) (Neg) U Amphetamin/Meth Scrn (Neg) MDMA (Ecstasy) Screen (Neg) U Benzodiazepines Scrn (Neg) Ur Cocaine Metabolite (Neg) U Marijuana (THC) Screen (Neg) Ethyl Alcohol mg/dL (<10.0) mg/dl 11/02/21 11/02/21 Range/Units 10:30 10:30 WBC (4.8-10.8) K/uL RBC (4.2-5.4) M/uL Hgb (12.0-16.0) g/dL POC Hgb (12.0-16.0) g/dl Hct (37-47) % POC Hct (37-47) % MCV (80-100) fL MCH (25-34) pg MCHC (32-36) g/dL RDW Std Deviation (36.4-46.3) fL RDW Coeff of Nini (11.5-14.5) % Plt Count (130-400) K/uL MPV (7.4-10.4) fL Immature Gran % (Auto) % Neut % (Auto) % Lymph % (Auto) % Jerome % (Auto) % Eos % (Auto) % Baso % (Auto) % Neut # (Auto) (1.4-6.5) K/uL Lymph # (Auto) (1.2-3.4) K/uL Jerome # (Auto) (0.11-0.59) K/uL Eos # (Auto) (0-0.5) K/uL Baso # (Auto) (0-0.2) K/uL Immature Gran # (Auto) (0.00-0.02) K/uL PT (9.0-12.0) Seconds INR (0.9-1.1) POC Sodium (135-144) mmol/L Sodium (136-145) mmol/L POC Potassium (3.3-5.0) mmol/L Potassium (3.5-5.1) mmol/L POC Chloride (101-112) mmol/L Chloride (98-107) mmol/L Carbon Dioxide (21-32) mmol/L POC Total CO2 (24-31) mmol/L Anion Gap (3-11) POC Anion Gap (16-25) mmol/L POC BUN (7-18) mg/dl BUN (6-23) mg/dl Creatinine (0.6-1.2) mg/dl POC Creatinine (0.6-1.3) mg/dl Est Cr Clr Drug Dosing Est GFR ( Amer) ml/min Est GFR (Non-Af Amer) ml/min BUN/Creatinine Ratio (10-20) Glucose (70-99(Fasting)) mg/dl POC Glucose (other) (70-99) mg/dl Calcium (8.5-10.1) mg/dl POC Ioniz Calcium Hay (1.12-1.32) mmol/l Total Bilirubin (0.2-1.0) mg/dl AST (13-39) U/L ALT (7-52) U/L Alkaline Phosphatase (34-104) U/L Troponin I (0-0.04) ng/ml Total Protein (6.0-8.3) gm/dl Albumin (3.4-5.0) gm/dl Globulin (2.5-4.0) gm/dl Albumin/Globulin Ratio (0.9-2) Lipase (11-82) U/L Urine Color Urine Appearance (Clear) Urine pH (4.5-7.5) Ur Specific [place] (1.000-1.030) Urine Protein (Negative) Urine Glucose (UA) (Negative) Urine Ketones (Negative) Urine Blood (Negative) Urine Nitrite (Negative) Urine Bilirubin (Negative) Urine Urobilinogen (Negative) Ur Leukocyte Esterase (Negative) Urine WBC (Auto) (0-5) /hpf Urine RBC (Auto) (0-4) /hpf U Hyaline Cast (Auto) (0-5) /lpf U Epithel Cells (Auto) (0-5) /lpf Urine Bacteria (Auto) (Negative) Ur Renal Epithelial Cell Amorphous Sediment (None Prsent) Urine Mucus (None Prsent) POC Ur Test NEG (NEG) Urine Opiates Screen Neg (Neg) Ur Methadone, Qual Neg (Neg) Urine Barbiturates Neg (Neg) Ur Phencyclidine (PCP) Neg (Neg) U Amphetamin/Meth Scrn Neg (Neg) MDMA (Ecstasy) Screen Neg (Neg) U Benzodiazepines Scrn Neg (Neg) Ur Cocaine Metabolite Neg (Neg) U Marijuana (THC) Screen Neg (Neg) Ethyl Alcohol mg/dL (<10.0) mg/dl Imaging Data Radiologist's Impression: Abdomen/Pelvis CT 11/02/21 10:26 CT abd pelvis wo con CLINICAL HISTORY: Status post fall with head injury. Patient unresponsive. COMPARISON STUDY: No previous studies for comparison. CT DOSE: TECHNIQUE: Standard CT of the Abdomen and Pelvis was performed without IV contrast. The patient did not receive oral contrast. A dose lowering technique was utilized adhering to the principles of ALARA. FINDINGS: This is a limited examination due to breathing motion artifact and the patient's arms being by her side. Lung base: The lung bases are clear. Abdominal cavity: There is no evidence for abdominal mass, adenopathy or ascites. Liver: The liver is homogeneous in attenuation on these limited noncontrast images..There are 3, approximately 1 cm low-attenuation lesions within the liver parenchyma which are suspicious for cysts. However, they cannot be fully evaluated by this study. Spleen: The spleen is homogeneous in attenuation on these limited noncontrast im ages. Pancreas: The pancreas is homogeneous in attenuation on these limited noncontrast images. Gall Bladder: The gallbladder is well distended with no evidence for cholelithiasis, wall thickening or pericholecystic edema.. Adrenal glands: The adrenal glands are normal in size and attenuation on these limited noncontrast images. Kidneys: The kidneys are homogeneous in attenuation on these limited noncontrast images. There is no evidence for gross renal mass, calculus or hydronephrosis bilaterally. Bowel: There is evidence for a small hiatal hernia. The bowel loops are normally placed within the abdomen and pelvis without evidence for dilatation or obstruction. There is no evidence for mass lesion. There is mild fecal stasis without impaction or obstruction. There are no inflammatory changes present. There is no evidence for free air. The appendix is not visualized. Bladder: Bauman catheter is present within the bladder. : Uterus appears enlarged. This is also not well evaluated by this study. Vasculature: There is no evidence for focal aneurysmal dilatation of the abdominal aorta. Osseous structures: There is no acute osseous pathology. IMPRESSION: 1. Limited study due to breathing motion artifact and the patient's arms being by her side. 2. Otherwise, no definite acute intra-abdominal or pelvic abnormality on these limited noncontrast images. 3. Nonacute findings are delineated above. ACT 112: Negative or not required by law. Electronically signed by: Robert Stewart M.D. 11/02/2021 11:[address] 11/02/21 10:26 CT OF THE CERVICAL SPINE WITHOUT CONTRAST CLINICAL HISTORY: fall COMPARISON STUDY: No previous studies for comparison. TECHNIQUE: Helical axial images of the cervical spine were obtained without IV contrast. Sagittal and coronal reconstructions were viewed. Automated exposure control was utilized for the study. A dose lowering technique was utilized adhering to the principles of ALARA. FINDINGS: There is reversal of the normal cervical lordosis. Vertebral body heights are maintained. No acute cervical spine fracture or subluxation is present. There is no prevertebral edema. Facet joints are intact. Endotracheal tube is partially imaged. C4 and C5 are partially fused. Osteophytosis at C5-C6 is present. IMPRESSION: No acute cervical spine fracture or subluxation. ACT 112: Negative or not required by law. Electronically signed by: Richar Amaya M.D. 11/02/2021 10:[address] 11/02/21 10:26 CT chest diagnostic wo con CT DOSE: HISTORY: Fall. Unresponsive. injury head TECHNIQUE: Multiaxial CT images of the chest were performed without contrast. A dose lowering technique was utilized adhering to the principles of ALARA. COMPARISON: None. FINDINGS: Endotracheal tube terminates 2.5 cm from the jomar. Otherwise, the central airways are patent. No pneumothorax. Mild dependent changes seen within the lungs posteriorly. No pleural effusions. No fractures within the visualized osseous structures. Please refer to same day abdomen and pelvis CT for further evaluation of the abdominal structures. Normal esophagus. Normal caliber thoracic aorta. The heart is normal in size. No pericardial effusion. No mediastinal hematoma or lymphadenopathy. IMPRESSION: 1. No acute traumatic process within the chest. 2. Endotracheal tube terminates 2.5 cm from the jomar. ACT 112: Negative or not required by law. Electronically signed by: Yvan Teresa M.D. 11/02/2021 11:[address] 11/02/21 10:[address] DOSE: HISTORY: Fall. head injury TECHNIQUE: Multiaxial CT images of the head were performed without the use of intravenous contrast. Automated exposure control was utilized for this study. A dose lowering technique was utilized adhering to the principles of ALARA. Comparison: None. Findings: The paranasal sinuses and mastoid air cells are clear. The calvarium and skull base are intact. The ventricles and sulci are within normal limits. There is no mass, hematoma, midline shift, or acute infarct. Left frontal scalp swelling/hematoma. Impression: No acute intracranial abnormality. Left frontal scalp injury. ACT 112: Negative or not required by law. Electronically signed by: Yvan Teresa M.D. 11/02/2021 10:59 AM ECG Data Attestation: I personally reviewed and interpreted this ECG as follows: Additional Comments: Twelve-lead EKG: Per my interpretation shows normal sinus rhythm at a rate of 80. No ST elevation. No PVCs. Normal QTC. MDM Narrative 35-year-old female presents to the ED with a chief complaint of a collapse with combativeness. Prehospital blood sugar was 136. Patient received 2 mg of IM Ativan prior to arrival. Patient is unable to provide any information. The patient's vital signs are stable during her ED stay. Exam shows a small laceration and contusion to the left temporal/periorbital region. Because the patient was not cooperative upon arrival and was combative concern for acute intracranial process was present. Since we are unable to complete a work-up with the patient's uncooperative and combative behavior, the patient was intubated. A CT scan of the brain did not show acute intracranial process. CT scan of the cervical spine did not show acute process. CT scan of the chest, abdomen pelvis did not show acute process. CBC and chemistry panel was normal. Urine did not show infection. test was negative. Troponin was negative. Alcohol was negative. Lipase was negative. Talk screen was negative. EKG showed a normal sinus rhythm. Critical care was consulted to evaluate the patient. See their note for additional information. Impression & Plan Syncope and collapse, Combative behavior, Altered mental status, Laceration of face Discharge Plan Visit Data Chief Complaint: Fall ED Provider: Valeriy Barnard Discharge Problem: Syncope and collapse, Combative behavior, Altered mental status, Laceration of face Patient Disposition: Being Evaluated by Hospitalist Forms Stand Alone Forms: [facility] Prescriptions Prescriptions: No Action multivitamin [Daily Multi-Vitamin] tablet 1 tab PO DAILY RF: 0 ibuprofen 200 mg Tablet 600 mg PO QID PRN (Reason: Pain) RF: 0 Referrals Referrals: PCP,NO [Primary Care Provider] -
[2021-11-02 13:50] LABS: Partial Thromboplastin Ratio 0.8; Partial Thromboplastin Time 23.3 Seconds (21.0-31.0)
[2021-11-02] MEDS ORDERED: ETOMIDATE 2 MG/ML 20 ML VIAL IV ONE (13:53)
[2021-11-02] MEDS ORDERED: SUCCINYLCHOLINE CHLORIDE 20 MG/ML 10 ML VIAL IV ONE (13:53)
--- NOTE | 2021-11-02 14:02 | XCELERA ---
[id number]
[2021-11-02] MEDS ORDERED: DIPHTHERIA/TETANUS TOX ADSORBED ULTRAFINED 0.5 ML SYR/VIAL IM ONE (15:04)
[2021-11-02] MEDS ORDERED: ICU PROTOCOL FOR HYPERGLYCEMIA PRN (15:04)
[2021-11-02] MEDS ORDERED: LORazepam 2 MG/1 ML VIAL IV STA (17:04)
[2021-11-02] MEDS ORDERED: HALOPERIDOL LACTATE 5 MG/ML 1 ML VIAL ONE (17:08)
[2021-11-02] MEDS ORDERED: HALOPERIDOL LACTATE 5 MG/ML 1 ML VIAL IV STA (17:09)
--- NOTE | 2021-11-02 18:06 | Magnetic Resonance Report ---
MRI OF THE BRAIN WITHOUT IV CONTRAST CLINICAL HISTORY: Change in mental status COMPARISON STUDY: CT of the brain dated 11/02/2021. TECHNIQUE: MRI of the brain was performed utilizing various T1 and T2-weighted sequences in the axial , sagittal, and coronal planes. IV contrast was not administered for this examination. The examinatio n is degraded by motion artifact. FINDINGS: Brain parenchyma: The brain parenchyma is normal in appearance. There is no hemorrhage or mass effect . There is no restricted diffusion to suggest acute ischemia. Linda-white matter differentiation is pr eserved. No extra-axial fluid collection is seen. The cerebellar tonsils are normal in configuration. Ventricles, sulci, and cisterns: Normal in configuration. Pituitary and sella: Unremarkable. Intracranial vasculature: Normal flow voids are maintained at the skull base. Orbits: The bony orbits are grossly intact. Orbital contents are normal in appearance. Sinuses and mastoids: Clear. Calvarium: Unremarkable. Soft tissues: There is a left frontal scalp contusion. Cervical cord: Partially visualized cervical spinal cord is normal in morphology and signal intensity . IMPRESSION: No acute intracranial abnormality noting a motion degraded examination. ACT 112: Negative or not required by law. Electronically signed by: Ovidio Jimenez M.D. 11/02/2021 6:03 PM
--- NOTE | 2021-11-02 18:18 | Magnetic Resonance Report ---
MR VENOGRAM OF THE BRAIN CLINICAL HISTORY: Change in mental status. COMPARISON STUDY: MRI of the brain performed concurrently on 11/02/2021. TECHNIQUE: Sagittal MR venogram of the brain is performed. 3-D reformats are created and assessed. IV contrast was not missed report for this examination. The examination is significantly degraded by mo tion artifact. FINDINGS: There is no evidence of dural venous sinus thrombosis. The superior sagittal sinus is paten t, as are the transverse and sigmoid sinuses. The inferior sagittal sinus is clear. The jugular veins are patent as imaged. IMPRESSION: Normal MR venogram of the brain. Electronically signed by: Ovidio Jimenez M.D. 11/02/2021 6:17 PM
[2021-11-02] MEDS: NORMOSOL-R 1,000 ML IV SCH (18:33)
[2021-11-03] MEDS: NORMOSOL-R 1,000 ML IV SCH (00:35)
[2021-11-03 05:43] LABS: Basophils # (auto) 0.02 K/uL (0-0.2); Basophils % (auto) 0.2 %; Eosinophils # (auto) 0.02 K/uL (0-0.5); Eosinophils % (auto) 0.2 %; Hematocrit (blood only) 36.3 % (37-47); Hemoglobin 12.7 g/dL (12.0-16.0); Immature Granulocytes # (auto) 0.02 K/uL (0.00-0.02); Immature Granulocytes % (auto) 0.2 %; Lymphocytes # (auto) 1.61 K/uL (1.2-3.4); Lymphocytes % (auto) 15.5 %; Mean Corpuscular Volume 91.4 fL (80-100); Mean Platelet Volume 9.7 fL (7.4-10.4); Monocytes # (auto) 1.01 K/uL (0.11-0.59); Monocytes % (auto) 9.7 %; Neutrophils # (auto) 7.69 K/uL (1.4-6.5); Neutrophils % (auto) 74.2 %; Platelet Count 254 K/uL (130-400); RDW Standard Deviation 40.4 fL (36.4-46.3); Red Blood Count 3.97 M/uL (4.2-5.4); White Blood Count 10.37 K/uL (4.8-10.8)
[2021-11-03 06:06] LABS: Alanine Aminotransferase 19 U/L (7-52); Albumin Level 3.1 gm/dl (3.4-5.0); Alkaline Phosphatase 42 U/L (34-104); Anion Gap 4 (3-11); Aspartate Aminotransferase 28 U/L (13-39); BUN Creatinine Ratio 10.5 (10-20); Bilirubin Direct 0.1 mg/dl (0-0.2); Bilirubin,Total 0.7 mg/dl (0.2-1.0); Blood Urea Nitrogen 6 mg/dl (6-23); Calcium 7.8 mg/dl (8.5-10.1); Carbon Dioxide 24 mmol/L (21-32); Chloride 109 mmol/L (98-107); Est GFR (African American) 138.2 ml/min; Est GFR (Non-African American) 119.3 ml/min; Glucose 93 mg/dl (70-99(Fasting)); Magnesium 2.2 mg/dl (1.7-2.4); Potassium 3.9 mmol/L (3.5-5.1); Sodium 137 mmol/L (136-145); Total Protein 4.9 gm/dl (6.0-8.3)
[2021-11-03 06:34] LABS: Lyme Ab IgG w/WB Rflx Negative (Negative); Lyme Ab IgM w/WB Rflx Negative (Negative)
[2021-11-03] MEDS ORDERED: ACETAMINOPHEN 325 MG TAB PO PRN (07:54)
--- NOTE | 2021-11-03 07:55 | Critical Care Progress Note ---
Date of Service November 03, 2021 Assessment & Plan (1) Syncope and collapse: Plan: PLAN: Neuro: Acute encephalopathy: resolved -MRI reviewed Concussion Post-concussive syndrome CV: Syncope with collapse -echocardiogram reviewed - troponin negative Fluids/Renal: Hypocarbia: resolved - likely related to testing variability of POC testing ID: Afebrile, no leukocytosis -Monitor fever curve GI/Nutrition: Regular diet Heme: DVT prophylaxis: SCDs - ambulatory Endocrine: ICU hyperglycemia protocol TSH pending Skin: Abrasion -Local wound care -Tetanus updated Vascular access: PIV Code Status: Full Disposition: Stable for downgrade out of ICU (2) Acute encephalopathy: Admission and Anticipated Discharge Date Admission Date: November 02, 2021 Subjective Denies headache, chest pain, shortness of breath. Does not recall events of yesterday. Feels near baseline Review of Systems Review of Systems: as per HPI Physical Exam Physical Exam: General: Alert. nontoxic. Skin: Abrasion left orbital ridge Head: Ecchymosis left orbit Ears, nose, mouth and throat: airway patent Cardiovascular: Normal peripheral perfusion Respiratory: no respiratory distress Gastrointestinal: Non distended Musculoskeletal: No deformity Psych: somewhat flat affect, appropriate/liner non-tangental thinking Results & Data Results & Data ([facility]) Vital Signs (Past 12 Hours) Vital Signs Temp Pulse Resp BP Pulse Ox 11/03/21 06:20 79 16 11/03/21 06:15 82 17 11/03/21 06:10 80 16 97 11/03/21 06:05 78 18 11/03/21 06:00 80 17 94/59 L 11/03/21 05:55 80 19 11/03/21 05:50 15 11/03/21 05:45 84 17 11/03/21 05:40 79 17 11/03/21 05:35 83 19 11/03/21 05:30 82 16 11/03/21 05:27 95 11/03/21 05:25 101 H 15 11/03/21 05:20 86 18 11/03/21 05:15 85 17 11/03/21 05:10 87 17 99/56 L 11/03/21 05:05 85 17 11/03/21 05:00 81 16 11/03/21 04:55 86 18 11/03/21 04:50 82 17 11/03/21 04:45 86 19 11/03/21 04:40 16 11/03/21 04:35 83 16 11/03/21 04:30 81 20 100 11/03/21 04:25 78 15 96 11/03/21 04:24 37.0 C 11/03/21 04:22 23 98/64 L 94 11/03/21 04:20 84 21 98 11/03/21 04:15 78 17 99 11/03/21 04:10 76 17 99 11/03/21 04:05 81 16 98 11/03/21 04:00 84 17 98 11/03/21 03:58 107 H 17 89/58 L 11/03/21 03:55 111 H 18 11/03/21 03:50 86 23 11/03/21 03:45 86 18 11/03/21 03:40 85 19 11/03/21 03:35 93 H 16 11/03/21 03:30 87 35 H 96 11/03/21 03:25 83 31 H 96 11/03/21 03:20 81 34 H 96 11/03/21 03:15 22 11/03/21 03:10 87 16 94 11/03/21 03:05 82 17 94 11/03/21 03:00 20 97 11/03/21 02:55 92 H 20 92 11/03/21 02:50 91 H 17 94 11/03/21 02:45 89 19 92 11/03/21 02:40 88 21 92 11/03/21 02:35 86 19 92 11/03/21 02:30 88 18 92 11/03/21 02:25 84 18 93 11/03/21 02:20 92 H 16 93 11/03/21 02:15 80 20 92 11/03/21 02:10 112 H 17 11/03/21 02:05 105 H 20 11/03/21 02:00 89 16 97/56 L 96 11/03/21 01:55 92 H 20 96 11/03/21 01:50 93 H 20 96 11/03/21 01:45 89 20 96 11/03/21 01:40 92 H 19 96 11/03/21 01:35 89 18 96 11/03/21 01:30 87 19 96 11/03/21 01:25 97 H 20 96 11/03/21 01:20 106 H 18 97 11/03/21 01:15 89 21 96 11/03/21 01:10 104 H 22 94 11/03/21 01:05 85 25 H 97 11/03/21 01:00 98 H 21 96 11/03/21 00:55 110 H 15 98 11/03/21 00:50 97 H 28 H 94 11/03/21 00:45 97 H 23 94 11/03/21 00:40 96 H 20 94 11/03/21 00:35 95 H 25 H 94 11/03/21 00:30 93 H 23 94 11/03/21 00:25 91 H 19 94 11/03/21 00:20 91 H 18 96 11/03/21 00:01 92 H 34 H 100/64 97 11/03/21 00:00 92 H 21 97 11/02/21 23:55 97 H 21 95 11/02/21 23:50 93 H 18 94 11/02/21 23:45 92 H 19 94 11/02/21 23:40 111 H 14 96 11/02/21 23:35 89 19 95 11/02/21 23:30 91 H 20 95 11/02/21 23:25 94 H 19 95 11/02/21 23:20 91 H 18 95 11/02/21 23:15 90 34 H 95 11/02/21 23:10 108 H 31 H 95 11/02/21 23:07 37.2 C 11/02/21 23:05 94 H 21 96 11/02/21 23:00 93 H 20 89/50 L 96 11/02/21 22:55 92 H 19 96 11/02/21 22:50 93 H 19 95 11/02/21 22:45 93 H 19 96 11/02/21 22:40 91 H 18 96 11/02/21 22:35 91 H 18 96 11/02/21 22:30 92 H 30 H 96 11/02/21 22:25 98 H 20 95 11/02/21 22:20 88 16 97 11/02/21 22:16 110 H 16 108/60 97 11/02/21 22:15 105 H 13 97 11/02/21 22:10 94 H 22 95 11/02/21 22:05 95 H 24 95 11/02/21 22:00 90 19 95 11/02/21 21:55 92 H 19 95 11/02/21 21:50 95 H 22 96 11/02/21 21:45 91 H 31 H 96 11/02/21 21:40 96 H 29 H 96 11/02/21 21:35 96 H 19 96 11/02/21 21:30 97 H 20 95 11/02/21 21:25 95 H 24 96 11/02/21 21:20 94 H 24 96 11/02/21 21:15 94 H 21 95 11/02/21 21:10 92 H 20 96 11/02/21 21:05 93 H 21 96 11/02/21 21:00 93 H 17 89/48 L 96 11/02/21 20:55 102 H 22 94 11/02/21 20:50 101 H 18 96 11/02/21 20:45 99 H 28 H 96 11/02/21 20:40 104 H 19 95 11/02/21 20:35 105 H 19 95 11/02/21 20:30 103 H 20 95 11/02/21 20:25 101 H 20 95 11/02/21 20:20 101 H 21 95 11/02/21 20:15 101 H 21 95 11/02/21 20:10 98 H 20 96 11/02/21 20:05 97 H 20 96 11/02/21 20:00 98 H 20 99/65 L 96 11/02/21 19:55 97 H 20 96 11/02/21 19:50 98 H 20 95 11/02/21 19:46 37.0 C 11/02/21 19:45 95 H 20 95 Critical Care Results & Data Vital Signs (Past 12 Hours) Vital Signs Temp Pulse Resp BP Pulse Ox 11/03/21 06:20 79 16 11/03/21 06:15 82 17 11/03/21 06:10 80 16 97 11/03/21 06:05 78 18 11/03/21 06:00 80 17 94/59 L 11/03/21 05:55 80 19 11/03/21 05:50 15 11/03/21 05:45 84 17 11/03/21 05:40 79 17 11/03/21 05:35 83 19 11/03/21 05:30 82 16 11/03/21 05:27 95 11/03/21 05:25 101 H 15 11/03/21 05:20 86 18 11/03/21 05:15 85 17 11/03/21 05:10 87 17 99/56 L 11/03/21 05:05 85 17 11/03/21 05:00 81 16 11/03/21 04:55 86 18 11/03/21 04:50 82 17 11/03/21 04:45 86 19 11/03/21 04:40 16 11/03/21 04:35 83 16 11/03/21 04:30 81 20 100 11/03/21 04:25 78 15 96 11/03/21 04:24 37.0 C 11/03/21 04:22 23 98/64 L 94 11/03/21 04:20 84 21 98 11/03/21 04:15 78 17 99 11/03/21 04:10 76 17 99 11/03/21 04:05 81 16 98 11/03/21 04:00 84 17 98 11/03/21 03:58 107 H 17 89/58 L 11/03/21 03:55 111 H 18 11/03/21 03:50 86 23 11/03/21 03:45 86 18 11/03/21 03:40 85 19 11/03/21 03:35 93 H 16 11/03/21 03:30 87 35 H 96 11/03/21 03:25 83 31 H 96 11/03/21 03:20 81 34 H 96 11/03/21 03:15 22 11/03/21 03:10 87 16 94 11/03/21 03:05 82 17 94 11/03/21 03:00 20 97 11/03/21 02:55 92 H 20 92 11/03/21 02:50 91 H 17 94 11/03/21 02:45 89 19 92 11/03/21 02:40 88 21 92 11/03/21 02:35 86 19 92 11/03/21 02:30 88 18 92 11/03/21 02:25 84 18 93 11/03/21 02:20 92 H 16 93 11/03/21 02:15 80 20 92 11/03/21 02:10 112 H 17 11/03/21 02:05 105 H 20 11/03/21 02:00 89 16 97/56 L 96 11/03/21 01:55 92 H 20 96 11/03/21 01:50 93 H 20 96 11/03/21 01:45 89 20 96 11/03/21 01:40 92 H 19 96 11/03/21 01:35 89 18 96 11/03/21 01:30 87 19 96 11/03/21 01:25 97 H 20 96 11/03/21 01:20 106 H 18 97 11/03/21 01:15 89 21 96 11/03/21 01:10 104 H 22 94 11/03/21 01:05 85 25 H 97 11/03/21 01:00 98 H 21 96 11/03/21 00:55 110 H 15 98 11/03/21 00:50 97 H 28 H 94 11/03/21 00:45 97 H 23 94 11/03/21 00:40 96 H 20 94 11/03/21 00:35 95 H 25 H 94 11/03/21 00:30 93 H 23 94 11/03/21 00:25 91 H 19 94 11/03/21 00:20 91 H 18 96 11/03/21 00:01 92 H 34 H 100/64 97 11/03/21 00:00 92 H 21 97 11/02/21 23:55 97 H 21 95 11/02/21 23:50 93 H 18 94 11/02/21 23:45 92 H 19 94 11/02/21 23:40 111 H 14 96 11/02/21 23:35 89 19 95 11/02/21 23:30 91 H 20 95 11/02/21 23:25 94 H 19 95 11/02/21 23:20 91 H 18 95 11/02/21 23:15 90 34 H 95 11/02/21 23:10 108 H 31 H 95 11/02/21 23:07 37.2 C 11/02/21 23:05 94 H 21 96 11/02/21 23:00 93 H 20 89/50 L 96 11/02/21 22:55 92 H 19 96 11/02/21 22:50 93 H 19 95 11/02/21 22:45 93 H 19 96 11/02/21 22:40 91 H 18 96 11/02/21 22:35 91 H 18 96 11/02/21 22:30 92 H 30 H 96 11/02/21 22:25 98 H 20 95 11/02/21 22:20 88 16 97 11/02/21 22:16 110 H 16 108/60 97 11/02/21 22:15 105 H 13 97 11/02/21 22:10 94 H 22 95 11/02/21 22:05 95 H 24 95 11/02/21 22:00 90 19 95 11/02/21 21:55 92 H 19 95 11/02/21 21:50 95 H 22 96 11/02/21 21:45 91 H 31 H 96 11/02/21 21:40 96 H 29 H 96 11/02/21 21:35 96 H 19 96 11/02/21 21:30 97 H 20 95 11/02/21 21:25 95 H 24 96 11/02/21 21:20 94 H 24 96 11/02/21 21:15 94 H 21 95 11/02/21 21:10 92 H 20 96 11/02/21 21:05 93 H 21 96 11/02/21 21:00 93 H 17 89/48 L 96 11/02/21 20:55 102 H 22 94 11/02/21 20:50 101 H 18 96 11/02/21 20:45 99 H 28 H 96 11/02/21 20:40 104 H 19 95 11/02/21 20:35 105 H 19 95 11/02/21 20:30 103 H 20 95 11/02/21 20:25 101 H 20 95 11/02/21 20:20 101 H 21 95 11/02/21 20:15 101 H 21 95 11/02/21 20:10 98 H 20 96 11/02/21 20:05 97 H 20 96 11/02/21 20:00 98 H 20 99/65 L 96 11/02/21 19:55 97 H 20 96 11/02/21 19:50 98 H 20 95 11/02/21 19:46 37.0 C 11/02/21 19:45 95 H 20 95 Lab & Micro Results (Past 24 Hours) RBC 3.97 M/uL (4.2-5.4) L 11/03/21 WBC 10.37 K/uL (4.8-10.8) 11/03/21 Hgb 12.7 g/dL (12.0-16.0) 11/03/21 Hct 36.3 % (37-47) L 11/03/21 MCV 91.4 fL (80-100) 11/03/21 MCH 32.0 pg (25-34) 11/03/21 MCHC 35.0 g/dL (32-36) 11/03/21 RDW Standard Deviation 40.4 fL (36.4-46.3) 11/03/21 RDW Coefficient of Variation 12.0 % (11.5-14.5) 11/03/21 Plt Count 254 K/uL (130-400) 11/03/21 MPV 9.7 fL (7.4-10.4) 11/03/21 Neutrophils (%) (Auto) 74.2 % 11/03/21 Lymphocytes (%) (Auto) 15.5 % 11/03/21 Monocytes # (Auto) 1.01 K/uL (0.11-0.59) H 11/03/21 Eosinophils # (Auto) 0.02 K/uL (0-0.5) 11/03/21 Immature Granulocyte % (Auto) 0.2 % 11/03/21 Neutrophils # (Auto) 7.69 K/uL (1.4-6.5) H 11/03/21 Lymphocytes # (Auto) 1.61 K/uL (1.2-3.4) 11/03/21 Monocytes # (Auto) 1.01 K/uL (0.11-0.59) H 11/03/21 Eosinophils # (Auto) 0.02 K/uL (0-0.5) 11/03/21 Basophils # (Auto) 0.02 K/uL (0-0.2) 11/03/21 Immature Granulocyte # (Auto) 0.02 K/uL (0.00-0.02) 11/03/21 Na 137 mmol/L (136-145) 11/03/21 K 3.9 mmol/L (3.5-5.1) 11/03/21 Cl 109 mmol/L (98-107) H 11/03/21 CO2 24 mmol/L (21-32) 11/03/21 Anion Gap 4 (3-11) 11/03/21 BUN 6 mg/dl (6-23) 11/03/21 Creatinine 0.57 mg/dl (0.6-1.2) L 11/03/21 Estimated GFR ( Amer) 138.2 ml/min 11/03/21 Estimated GFR (Non-Af Amer) 119.3 ml/min 11/03/21 BUN/Creatinine Ratio 10.5 (10-20) 11/03/21 Glu 93 mg/dl (70-99(Fasting)) 11/03/21 Ca 7.8 mg/dl (8.5-10.1) L 11/03/21 Phosphorus Level 3.0 mg/dl (2.5-4.9) 11/03/21 Total Bilirubin 0.7 mg/dl (0.2-1.0) 11/03/21 Direct Bilirubin 0.1 mg/dl (0-0.2) 11/03/21 AST 28 U/L (13-39) 11/03/21 ALT 19 U/L (7-52) 11/03/21 Alkaline Phosphatase 42 U/L (34-104) 11/03/21 TP 4.9 gm/dl (6.0-8.3) L 11/03/21 Albumin 3.1 gm/dl (3.4-5.0) L 11/03/21 Globulin 2.1 gm/dl (2.5-4.0) L 11/02/21 Albumin/Globulin Ratio 1.7 (0.9-2) 11/02/21 Mg 2.2 mg/dl (1.7-2.4) 11/03/21 05:24 11/03/21 Calcium Level 7.8 mg/dl (8.5-10.1) L 11/03/21 05:24 11/03/21 Prothromb Time International Ratio 1.0 (0.9-1.1) 11/02/21 10:17 11/02/21 Diagnostic Findings (Past 24 Hours) Abdomen/Pelvis CT 11/02/21 10:26 CT abd pelvis wo con CLINICAL HISTORY: Status post fall with head injury. Patient unresponsive. COMPARISON STUDY: No previous studies for comparison. CT DOSE: TECHNIQUE: Standard CT of the Abdomen and Pelvis was performed without IV contrast. The patient did not receive oral contrast. A dose lowering technique was utilized adhering to the principles of ALARA. FINDINGS: This is a limited examination due to breathing motion artifact and the patient's arms being by her side. Lung base: The lung bases are clear. Abdominal cavity: There is no evidence for abdominal mass, adenopathy or ascites. Liver: The liver is homogeneous in attenuation on these limited noncontrast images..There are 3, approximately 1 cm low-attenuation lesions within the liver parenchyma which are suspicious for cysts. However, they cannot be fully evaluated by this study. Spleen: The spleen is homogeneous in attenuation on these limited noncontrast images. Pancreas: The pancreas is homogeneous in attenuation on these limited noncontrast images. Gall Bladder: The gallbladder is well distended with no evidence for cholelithiasis, wall thickening or pericholecystic edema.. Adrenal glands: The adrenal glands are normal in size and attenuation on these limited noncontrast images. Kidneys: The kidneys are homogeneous in attenuation on these limited noncontrast images. There is no evidence for gross renal mass, calculus or hydronephrosis bilaterally. Bowel: There is evidence for a small hiatal hernia. The bowel loops are normally placed within the abdomen and pelvis without evidence for dilatation or obstruction. There is no evidence for mass lesion. There is mild fecal stasis without impaction or obstruction. There are no inflammatory changes present. There is no evidence for free air. The appendix is not visualized. Bladder: Bauman catheter is present within the bladder. : Uterus appears enlarged. This is also not well evaluated by this study. Vasculature: There is no evidence for focal aneurysmal dilatation of the abdominal aorta. Osseous structures: There is no acute osseous pathology. IMPRESSION: 1. Limited study due to breathing motion artifact and the patient's arms being by her side. 2. Otherwise, no definite acute intra-abdominal or pelvic abnormality on these limited noncontrast images. 3. Nonacute findings are delineated above. ACT 112: Negative or not required by law. Electronically signed by: Robert Stewart M.D. 11/02/2021 11:[address] 11/02/21 10:26 CT OF THE CERVICAL SPINE WITHOUT CONTRAST CLINICAL HISTORY: fall COMPARISON STUDY: No previous studies for comparison. TECHNIQUE: Helical axial images of the cervical spine were obtained without IV contrast. Sagittal and coronal reconstructions were viewed. Automated exposure control was utilized for the study. A dose lowering technique was utilized adhering to the principles of ALARA. FINDINGS: There is reversal of the normal cervical lordosis. Vertebral body heights are maintained. No acute cervical spine fracture or subluxation is present. There is no prevertebral edema. Facet joints are intact. Endotracheal tube is partially imaged. C4 and C5 are partially fused. Osteophytosis at C5-C6 is present. IMPRESSION: No acute cervical spine fracture or subluxation. ACT 112: Negative or not required by law. Electronically signed by: Richar Amaya M.D. 11/02/2021 10:[address] 11/02/21 10:26 CT chest diagnostic wo con CT DOSE: HISTORY: Fall. Unresponsive. injury head TECHNIQUE: Multiaxial CT images of the chest were performed without contrast. A dose lowering technique was utilized adhering to the principles of ALARA. COMPARISON: None. FINDINGS: Endotracheal tube terminates 2.5 cm from the jomar. Otherwise, the central airways are patent. No pneumothorax. Mild dependent changes seen within the lungs posteriorly. No pleural effusions. No fractures within the visualized osseous structures. Please refer to same day abdomen and pelvis CT for further evaluation of the abdominal structures. Normal esophagus. Normal caliber thoracic aorta. The heart is normal in size. No pericardial effusion. No mediastinal hematoma or lymphadenopathy. IMPRESSION: 1. No acute traumatic process within the chest. 2. Endotracheal tube terminates 2.5 cm from the jomar. ACT 112: Negative or not required by law. Electronically signed by: Yvan Teresa M.D. 11/02/2021 11:[address] 11/02/21 10:[address] DOSE: HISTORY: Fall. head injury TECHNIQUE: Multiaxial CT images of the head were performed without the use of intravenous contrast. Automated exposure control was utilized for this study. A dose lowering technique was utilized adhering to the principles of ALARA. Comparison: None. Findings: The paranasal sinuses and mastoid air cells are clear. The calvarium and skull base are intact. The ventricles and sulci are within normal limits. There is no mass, hematoma, midline shift, or acute infarct. Left frontal scalp swelling/hematoma. Impression: No acute intracranial abnormality. Left frontal scalp injury. ACT 112: Negative or not required by law. Electronically signed by: Yvan Teresa M.D. 11/02/2021 10:59 AM Brain MRI 11/02/21 14:50 MRI OF THE BRAIN WITHOUT IV CONTRAST CLINICAL HISTORY: Change in mental status COMPARISON STUDY: CT of the brain dated 11/02/2021. TECHNIQUE: MRI of the brain was performed utilizing various T1 and T2-weighted sequences in the axial, sagittal, and coronal planes. IV contrast was not administered for this examination. The examination is degraded by motion artifact. FINDINGS: Brain parenchyma: The brain parenchyma is normal in appearance. There is no hemorrhage or mass effect. There is no restricted diffusion to suggest acute ischemia. Linda-white matter differentiation is preserved. No extra-axial fluid collection is seen. The cerebellar tonsils are normal in configuration. Ventricles, sulci, and cisterns: Normal in configuration. Pituitary and sella: Unremarkable. Intracranial vasculature: Normal flow voids are maintained at the skull base. Orbits: The bony orbits are grossly intact. Orbital contents are normal in appearance. Sinuses and mastoids: Clear. Calvarium: Unremarkable. Soft tissues: There is a left frontal scalp contusion. Cervical cord: Partially visualized cervical spinal cord is normal in morphology and signal intensity. IMPRESSION: No acute intracranial abnormality noting a motion degraded examination. ACT 112: Negative or not required by law. Electronically signed by: Ovidio Jimenez M.D. 11/02/2021 6:03 PM Head/Brain Mag Res Venography 11/02/21 15:15 MR VENOGRAM OF THE BRAIN CLINICAL HISTORY: Change in mental status. COMPARISON STUDY: MRI of the brain performed concurrently on 11/02/2021. TECHNIQUE: Sagittal MR venogram of the brain is performed. 3-D reformats are created and assessed. IV contrast was not missed report for this examination. The examination is significantly degraded by motion artifact. FINDINGS: There is no evidence of dural venous sinus thrombosis. The superior sagittal sinus is patent, as are the transverse and sigmoid sinuses. The inferior sagittal sinus is clear. The jugular veins are patent as imaged. IMPRESSION: Normal MR venogram of the brain. Electronically signed by: Ovidio Jimenez M.D. 11/02/2021 6:17 PM I & O Totals 24 Hours 11/02/21 11/03/21 11/04/21 06:59 06:59 06:59 Intake Total 1138.238 / 1138.238 Output Total 1850 / 1850 Balance -711.762 / -711.762 Cumulative 11/02/21 09:46 thru 11/03/21 05:32 Intake Total 1138.238 Output Total 1850 Balance -711.762 RT Ventilator Mngmt (Last Documented) Ventilator Ordered Settings Ventilator Support Mode Assist Control 11/02/21 10:32 Respiratory Rate 16 11/03/21 06:20 Ventilator Tidal Volume 500 11/02/21 10:32 Setting Minute Ventilation 7.1 11/02/21 10:32 Positive End Expiratory 5 11/02/21 10:32 Pressure Fraction of Inspired Oxygen 40 11/02/21 12:35 Inspiratory Pressure 18 11/02/21 10:32 Machine Comment Decreased to 40% after vent check 11/02/21 10:32 Ventilator - PT Measurements Respiratory Rate 16 Exhaled Tidal Volume 498 Minute Ventilation 7.1 Peak Inspiratory Airway 18 Pressure End-Tidal CO2 42 Dynamic Lung Compliance 38.31 Normal Static Lung Compliance 48.[address] Cutler at bedside, patient placed in 3L Coding Level of Care Code 85333 Subseq Hosp Care Lvl 2 Diagnoses Syncope and collapse R55 Acute encephalopathy G93.40
--- NOTE | 2021-11-03 12:57 | Electrocardiogram Report ---
Test Reason : Blood Pressure : / mmHG Vent. Rate : 081 BPM Atrial Rate : 081 BPM P-R Int : 116 ms QRS Dur : 094 ms QT Int : 364 ms P-R-T Axes : 090 108 057 degrees QTc Int : 422 ms Normal sinus rhythm Rightward axis Pulmonary disease pattern Abnormal ECG When compared with ECG of 02-OCT-2018 17:09, No significant change was found Confirmed by Mina Brice ([id number]) on 11/03/2021 12:57:24 PM Referred By: REFERRED SELF Confirmed By:Mina Brice
--- NOTE | 2021-11-03 18:22 | Hospitalist Progress Note ---
Date of Service November 03, 2021 Assessment & Plan (1) Syncope and collapse: (2) Acute encephalopathy: Plan: Patient is 35-year-old female with PMH ectopic in 2019 presented to ER for syncope and collapse while walking her dog She said she has been giving plasma twice a week, with most recent was this Status post extubation in the on admission Imaging done on admission were negative MRI showed no acute intracranial abnormality MR venogram of the brain showed normal MR venogram of the brain. Echo showed normal left ventricular systolic function. No significant valvular heart disease Back to her baseline No neuro focal deficit EEG pending Neuro consulted Patient understand that she should not drive for the next 6 months Clinically stable t Leukocytosis Mostly reactive No evidence of infection WBC normalized today Stable DVT on SCD/Ambulate CODE STATUS full code Disposition Plan to discharge tomorrow Admission and Anticipated Discharge Date Admission Date: November 02, 2021 Subjective Patient was seen and evaluated for follow-up with syncope Lying in bed with no acute distress with significant other at bedside Patient said that she feels fine She said she did not remember what happened while walking the dog She did not recall to have any symptoms such as dizziness malaise She said she has been giving plasma twice a week on Friday and Denies any chest pain, palpitation, dizziness, headache, shortness of breath. Review of Systems Review of Systems: All systems reviewed & are unremarkable except as noted in HPI & below Physical Exam Physical Exam: General- No acute distress Head- atraumatic, Ecchymossis of L orbit Eyes- PERRL, EOMI, Abrasion left orbital ridge ENT- oropharynx clear Neck- supple, no JVD Lungs- clear to auscultation Heart- regular rhythm; no murmur Abdomen- normal bowel sounds, soft, nontender Extremities- no calf tenderness Neuro- alert, oriented x 3; PERRL, EOMI; no facial palsy; no dysarthria Skin- warm & dry Results & Data Results & Data ([facility]) Vital Signs (Past 12 Hours) Vital Signs Temp Pulse Pulse Pulse Resp BP BP 11/03/21 16:00 37.2 C 80 18 11/03/21 10:36 36.8 C 76 95/61 L 11/03/21 07:49 36.8 C 11/03/21 07:33 70 20 107/64 11/03/21 07:00 83 19 11/03/21 06:20 79 16 BP Pulse Ox 11/03/21 16:00 101/63 95 11/03/21 10:36 98 11/03/21 07:49 11/03/21 07:33 98 11/03/21 07:00 11/03/21 06:20
[2021-11-04 06:07] LABS: Basophils # (auto) 0.03 K/uL (0-0.2); Basophils % (auto) 0.4 %; Eosinophils # (auto) 0.06 K/uL (0-0.5); Eosinophils % (auto) 0.7 %; Hematocrit (blood only) 36.1 % (37-47); Hemoglobin 12.5 g/dL (12.0-16.0); Lymphocytes # (auto) 2.07 K/uL (1.2-3.4); Lymphocytes % (auto) 24.6 %; Mean Corpuscular Hemoglobin 32.2 pg (25-34); Mean Corpuscular Hgb Conc 34.6 g/dL (32-36); Mean Platelet Volume 9.8 fL (7.4-10.4); Monocytes % (auto) 10.7 %; Neutrophils # (auto) 5.35 K/uL (1.4-6.5); Neutrophils % (auto) 63.6 %; Platelet Count 233 K/uL (130-400); RDW Standard Deviation 40.4 fL (36.4-46.3); Red Blood Count 3.88 M/uL (4.2-5.4); White Blood Count 8.41 K/uL (4.8-10.8)
[2021-11-04 06:34] LABS: Anion Gap 7 (3-11); BUN Creatinine Ratio 12.9 (10-20); Blood Urea Nitrogen 8 mg/dl (6-23); Calcium 7.9 mg/dl (8.5-10.1); Carbon Dioxide 24 mmol/L (21-32); Chloride 107 mmol/L (98-107); Est GFR (African American) 134.5 ml/min; Glucose 80 mg/dl (70-99(Fasting)); Phosphorus 2.6 mg/dl (2.5-4.9); Potassium 3.7 mmol/L (3.5-5.1); Sodium 138 mmol/L (136-145)
--- NOTE | 2021-11-04 13:09 | Electroencephalogram ---
EEG Procedure Note Date of Service November 04, 2021 Start / End Times Start Time: 1231 End Time: [address] Cutler History syncope Home Medication List Medication Instructions Recorded Confirmed Type ibuprofen 200 mg tablet 600 mg PO QID PRN 10/02/18 11/02/21 History multivitamin (Daily Multi-Vitamin) 1 tab PO DAILY 03/30/19 11/02/21 History Inpatient Medication List Discontinued Medications Diphtheria/Pertussis/Tetanus Vacc (Diphtheria/Tetanus/Pertussis 0.5 Ml Syr/Vial) Confirm Administered Dose 0.5 ml IM .STK-MED ONE Stop: 11/02/21 12:34 Last Admin: 11/02/21 12:55 Dose: 0.5 ml Documented by: [id number] Haloperidol Lactate (Haloperidol Lactate 5 Mg/Ml 1 Ml Vial) 2.5 mg IV NOW STA Stop: 11/02/21 17:10 Last Admin: 11/02/21 18:33 Dose: 2.5 mg Documented by: [id number] Haloperidol Lactate (Haloperidol Lactate 5 Mg/Ml 1 Ml Vial) Confirm Administered Dose 5 mg .ROUTE .STK-MED ONE Stop: 11/02/21 17:09 Last Admin: 11/02/21 18:34 Dose: Not Given Documented by: [id number] Propofol (Diprivan) 1,000 mg in 100 mls @ 15.36 mls/hr IV .Q6H31M [facility]; Protocol Stop: 11/05/21 10:29 Last Titration: 11/02/21 12:37 Dose: 0 mcg/kg/min, 0 mls/hr Documented by: [id number] Titration: 11/02/21 12:10 Dose: 50 mcg/kg/min, 19.2 mls/hr Documented by: [id number] Titration: 11/02/21 11:43 Dose: 45 mcg/kg/min, 17.3 mls/hr Documented by: [id number] Titration: 11/02/21 10:37 Dose: 40 mcg/kg/min, 15.4 mls/hr Documented by: [id number] Admin: 11/02/21 10:25 Dose: 20 mcg/kg/min, 7.7 mls/hr Documented by: [id number] Cosigned by: [id number] Sodium Chloride (Nss) 500 mls @ 999 mls/hr IV .Q31M STA Stop: 11/02/21 10:56 Last Infusion: 11/02/21 10:50 Dose: 0 mls/hr Documented by: [id number] Admin: 11/02/21 10:20 Dose: 999 mls/hr Documented by: [id number] Parenteral Electrolytes (Plasma-Lyte A) 1,000 mls @ 100 mls/hr IV .Q10H [facility] Stop: 12/02/21 15:03 Last Infusion: 11/03/21 07:54 Dose: 0 mls/hr Documented by: [id number] Admin: 11/03/21 00:35 Dose: 100 mls/hr Documented by: [id number] Infusion: 11/03/21 00:35 Dose: 100 mls/hr Documented by: [id number] Admin: 11/02/21 18:33 Dose: 100 mls/hr Documented by: [id number] Lorazepam (Lorazepam 2 Mg/1 Ml Vial) Confirm Administered Dose 2 mg .ROUTE .STK- MED ONE Stop: 11/02/21 10:12 Last Admin: 11/02/21 10:12 Dose: 2 mg Documented by: [id number] Lorazepam (Lorazepam 2 Mg/1 Ml Vial) Confirm Administered Dose 2 mg .ROUTE .STK- MED ONE Stop: 11/02/21 12:14 Last Admin: 11/02/21 12:17 Dose: 2 mg Documented by: [id number] Lorazepam (Lorazepam 2 Mg/1 Ml Vial) 1 mg IV NOW STA Stop: 11/02/21 17:05 Last Admin: 11/02/21 18:34 Dose: 1 mg Documented by: [id number] Lorazepam (Lorazepam 2 Mg/1 Ml Vial) Confirm Administered Dose 2 mg .ROUTE .STK- MED ONE Stop: 11/02/21 17:08 Last Admin: 11/02/21 18:34 Dose: Not Given Documented by: [id number] Midazolam HCl (Midazolam Hcl 5 Mg/Ml 1 Ml Vial) 5 mg IV NOW STA Stop: 11/02/21 12:30 Last Admin: 11/02/21 12:56 Dose: Not Given Documented by: [id number] Miscellaneous (Rapid Sequence Induction Bag) Confirm Administered Dose 1 ea .ROUTE .STK-MED ONE Stop: 11/02/21 10:14 Last Admin: 11/02/21 10:20 Dose: 1 ea Documented by: [id number] Miscellaneous (Stat Iv Infusion Titration Per Protocol) 1 ea N/A NOW STA Stop: 11/02/21 10:27 Last Admin: 11/02/21 10:25 Dose: 1 ea Documented by: [id number] Propofol (Propofol Iv Emulsion 10 Mg/Ml 100 Ml Vial) Confirm Administered Dose 1,000 mg IV .STK-MED ONE Stop: 11/02/21 10:23 Last Admin: 11/02/21 11:31 Dose: Not Given Documented by: [id number] Propofol (Propofol Bolus From Bag) 20 mg IV Q5M PRN PRN Reason: Sedation Stop: 11/05/21 10:25 Last Admin: 11/02/21 12:11 Dose: 20 mg Documented by: [id number] Cosigned by: [id number] Admin: 11/02/21 11:53 Dose: 20 mg Documented by: [id number] Cosigned by: [id number] Vecuronium [place] (Vecuronium [place] 10 Mg Vial) Confirm Administered Dose 10 mg IV .STK-MED ONE Stop: 11/02/21 10:35 Last Admin: 11/02/21 10:37 Dose: 10 mg Documented by: [id number] Cosigned by: [id number] Description This is a 21 electrode EEG with a single channel dedicated to limited EKG. The electrodes were placed in accordance with the International 10-20 system. This EEG was done as a bedside recording and is of good technical quality with few or no muscle movement artifact being seen. Stimulation was performed. Drowsiness light sleep not recorded. During wakefulness there is evidence for normal background rhythm the alpha range of up to 10 Hz maximum =30 V maximal amplitude. This is maximum posterior head regions bilaterally symmetrical. Polymorphic mid to upper frequency modest voltage theta activity seen symmetrically over the central regions predominantly. Beta activity seen bifrontally. Photic stimulation provokes normal driving response without a photo myogenic or photoparoxysmal component. No potentially epileptiform activity is seen. Interpretation Normal EEG during wakefulness Clinical Correlation This normal study revealed no evidence for focal generalized encephalopathy no evidence for potential epileptogenic activity. Durga Graham MD
--- NOTE | 2021-11-04 13:12 | Consultation Report ---
DATE OF SERVICE: 11/04/2021. REASON FOR CONSULTATION: Loss of consciousness. HISTORY OF PRESENT ILLNESS: The patient is a 35-year-old right-handed female without significant past medical history. Yesterday about 9:00 a.m., she was walking her dog per EMS. EMS reported that there was a witness that saw her collapse while walking the dog. There was no seizure activity. The patient apparently was agitated upon EMS arrival, and they gave her 2 mg of Ativan and transported here to the hospital. She was still combative on arrival. EMS reported a prehospital blood sugar of 136. She was in sinus rhythm. The indicates that she fell somewhere on her walk and they do not know who the witness is nor have they been able to find out who the witness is. The patient was in her usual state of health. She donates plasma twice a week, last plasma donation 2 days prior to admission. She was otherwise feeling well. She had eaten breakfast, but that was typical for her and she had last eaten about 10:00 p.m. She was not taking any medications. There was nothing that she was using [id number]. There was no alcohol use or withdrawal or medication use or withdrawal. She has no prior history of seizure. She was born full term and had normal milestones with the exception of a "lisp." No history of significant head injury. No history of stroke. No history of staring spells, no family history of epilepsy. She has no prior history of loss of consciousness and no history of febrile seizure. Because the patient was agitated, she needed to be sedated and intubated briefly. There was no tongue biting, and there was no incontinence. PAST MEDICAL HISTORY: Notable for anemia, elevated serum hCG, hemoperitoneum, ectopic , history of chickenpox. PAST SURGICAL HISTORY: Salpingectomy for left ectopic , wisdom teeth extraction. FAMILY HISTORY: Mother has a history of depression, ovarian cyst and from alcoholic related liver disease. Grandfather maternal had heart disease in his 70s. No family history of seizure. No family history of early heart disease or sudden . 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 Nonsmoker, does not drink alcohol. HOME MEDICATIONS: Were ibuprofen p.r.n. and a multiple vitamin. ALLERGIES: No allergies. DIAGNOSTIC TESTING. A white count, H and H and platelet count were normal. PT, PTT normal. Point of care glucose was 130, calcium was 8.2, albumin 3.1, total protein 5.6. TSH normal. Urinalysis notable for trace protein, 1+ ketones, 5- 10 red cells. BUN was 11, creatinine 0.8. Tox screen negative. Alcohol level negative. COVID negative. HCG was not performed. CT of the head, left frontal scalp injury. MRI of the brain was done without IV contrast and was unremarkable. MRV normal. EEG not yet done. PHYSICAL EXAMINATION VITAL SIGNS: Initial vitals are 34.6, pulse 85. Blood pressure 82/57 on room air with 147/112. Current most recent vitals, 104/62, 72, 16, 36.7, 97% sat on room air. NEUROLOGIC: The patient is awake and alert, oriented x3. She denies any headache, unilateral weakness or numbness. She is alert and oriented x3. There is no right/left confusion and there is no aphasia. There is a raccoon eye on the left. There is some abrasion on the left scalp. Her head is otherwise normocephalic, atraumatic and her neck is supple. Pupils are equal, round, reactive to light. No papilledema. Normal cheung, motility. There is normal facial symmetry. Some mild flattening of left nasolabial fold related to left facial swelling. Tongue is midline. Uvula elevates symmetrically. There is no tongue laceration. There are no carotid bruits, no heart murmurs. There is normal bulk and tone, full strength, no drift. Normal rapid alternating movements. Symmetric reflexes, downgoing toes. [id number] and [id number] are normal. Sensation is intact to light touch and vibration sense. IMPRESSION AND PLAN: Episode of loss of consciousness apparently was witnessed and not known to see seizure activity. The patient was very combative thereafter, possibly representing concussive symptoms. That combativeness required sedation and then intubation. I do agree that the degree of agitation is somewhat out of proportion to a typical syncopal episode, but may be consistent with her head injury. PLAN: The MRI of the brain needs to be performed with contrast. A serum hCG should be performed. An EEG should be performed. We will call in a tech. If the EEG is normal, the patient can be discharged without anticonvulsants. She should arrange to see us within the next 10 or so days and we would likely set up an ambulatory EEG. Because of this episode of loss of consciousness of unclear etiology the patient needs to not drive for 6 months, bathe alone, swim alone, be at heights. I would also recommend registered nurse cardiac telemetry as an outpatient. Job ID: [id number] [facility]
[2021-11-04] MEDS ORDERED: GADOBUTROL 7.5ML VIAL IV ONE (14:30)
--- NOTE | 2021-11-04 14:49 | Magnetic Resonance Report ---
MRI OF THE BRAIN COMBO CLINICAL HISTORY: Syncope. Head injury. Seizure. COMPARISON STUDY: CT and MRI of the brain dated 11/02/2021. TECHNIQUE: MRI of the brain was performed utilizing various T1 and T2-weighted sequences in the axial , sagittal, and coronal planes. Contrast-enhanced sequences were acquired following the administratio n of 6 cc of Gadavist. The examination is performed using the seizure protocol. FINDINGS: Brain parenchyma: The brain parenchyma is normal in appearance. There is no hemorrhage or mass effect . There is no restricted diffusion to suggest acute ischemia. No enhancing mass lesion is identified on the postcontrast images. Linda-white matter differentiation is preserved. No extra-axial fluid lo ection is seen. 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 The cerebellar tonsils are normal in configuration. The hippocampi are normal and symmetric. Ventricles, sulci, and cisterns: Normal in configuration. Pituitary and sella: Unremarkable. Intracranial vasculature: Normal flow voids are maintained at the skull base. Orbits: The bony orbits are grossly intact. Orbital contents are normal in appearance. Sinuses and mastoids: Clear. Calvarium: Unremarkable. Soft tissues: A frontal scalp contusion is again noted. Cervical cord: Partially visualized cervical spinal cord is normal in morphology and signal intensity . IMPRESSION: No intracranial abnormality is identified. ACT 112: Negative or not required by law. Electronically signed by: Ovidio Jimenez M.D. 11/04/2021 2:47 PM
--- NOTE | 2021-11-04 16:00 | Discharge Summary ---
Date of Service November 04, 2021 Admission HPI Per Admitting Provider Patient is 35-year-old female with PMH ectopic in 2019 presented to ER for syncope and collapse. Unable to obtain history from patient at this time secondary to sedation. History obtained from ER staff and patient's . It is reported patient was walking her dog today when had sudden episode of collapse per bystanders. It is reported no CPR was performed. Is reported EMS noted BSG in the 130s and patient required IM Ativan for transportation to ER. In ER patient combative and was sedated and intubated to facilitate work-up. Patient's reports patient takes multivitamin and ibuprofen as needed. Reports no tobacco, alcohol or known drug use. Denies any history of syncope or seizures in past. Denies any known family history of seizures, sudden cardiac arrest. Unknown last menstrual period. No known drug allergies reported by . Admission Exam Per Admitting Provider General: sedated, appears WDWN Head: normocephalic, +ecchymosis and abrasion left superior orbit and left temporal region Eyes: PERRL, conjunctiva non-injected ENT: normal inspection external ears, nose, mucous membranes appear moist Neck: +c collar in place Lungs: clear, no respiratory distress, no wheezing/rhonchi/rales CV: RRR, rate 92, no murmur, no pretibial edema Abd: normal BS, soft Ext: no cyanosis, no erythema, left arm with ecchymosis Neuro: Sedated currently Skin: warm, dry Principal Diagnosis Syncope and collapse Acute encephalopathy Leukocytosis Discharge Exam General- No acute distress Head- atraumatic, Ecchymossis of L orbit Eyes- PERRL, EOMI, Abrasion left orbital ridge ENT- oropharynx clear Neck- supple, no JVD Lungs- clear to auscultation Heart- regular rhythm; no murmur Abdomen- normal bowel sounds, soft, nontender Extremities- no calf tenderness Neuro- alert, oriented x 3; PERRL, EOMI; no facial palsy; no dysarthria Skin- warm & dry Discharge Data Allergies Allergy/AdvReac Type Severity Reaction Status Date / Time No Known Drug Allergies Allergy Verified 11/02/21 11:36 Consultations 11/02/21 12:25 Consult Physician Stat ED Decision to Admit Stat 11/03/21 12:44 Consult Neurology Routine Ordered Studies 11/02/21 10:26 CT abd pelvis wo con Stat CT cervical spine wo con Stat CT chest diagnostic wo con Stat CT head/brain wo con Stat 11/02/21 14:50 MR brain wo con Stat 11/02/21 15:15 MR venography head wo con Routine 11/04/21 11:44 MR brain seizure wo/w con Urgent MRI OF THE BRAIN COMBO CLINICAL HISTORY: Syncope. Head injury. Seizure. COMPARISON STUDY: CT and MRI of the brain dated 11/02/2021. TECHNIQUE: MRI of the brain was performed utilizing various T1 and T2-weighted sequences in the axial, sagittal, and coronal planes. Contrast-enhanced sequences were acquired following the administration of 6 cc of Gadavist. The examination is performed using the seizure protocol. FINDINGS: Brain parenchyma: The brain parenchyma is normal in appearance. There is no hemorrhage or mass effect. There is no restricted diffusion to suggest acute ischemia. No enhancing mass lesion is identified on the postcontrast images. Linda-white matter differentiation is preserved. No extra-axial fluid collection is seen. 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 The cerebellar tonsils are normal in configuration. The hippocampi are normal and symmetric. Ventricles, sulci, and cisterns: Normal in configuration. Pituitary and sella: Unremarkable. Intracranial vasculature: Normal flow voids are maintained at the skull base. Orbits: The bony orbits are grossly intact. Orbital contents are normal in appearance. Sinuses and mastoids: Clear. Calvarium: Unremarkable. Soft tissues: A frontal scalp contusion is again noted. Cervical cord: Partially visualized cervical spinal cord is normal in morphology and signal intensity. IMPRESSION: No intracranial abnormality is identified. ACT 112: Negative or not required by law. Electronically signed by: Ovidio Jimenez M.D. 11/04/2021 2:47 PM Dictated:11/04/21 1442 Transcribed: 11/04/21 1442 MR VENOGRAM OF THE BRAIN CLINICAL HISTORY: Change in mental status. COMPARISON STUDY: MRI of the brain performed concurrently on 11/02/2021. TECHNIQUE: Sagittal MR venogram of the brain is performed. 3-D reformats are created and assessed. IV contrast was not missed report for this examination. T he examination is significantly degraded by motion artifact. FINDINGS: There is no evidence of dural venous sinus thrombosis. The superior sagittal sinus is patent, as are the transverse and sigmoid sinuses. The inferior sagittal sinus is clear. The jugular veins are patent as imaged. IMPRESSION: Normal MR venogram of the brain. Electronically signed by: Ovidio Jimenez M.D. 11/02/2021 6:17 PM Dictated:11/02/211814 Transcribed: 11/02/211814 MRI OF THE BRAIN WITHOUT IV CONTRAST CLINICAL HISTORY: Change in mental status COMPARISON STUDY: CT of the brain dated 11/02/2021. TECHNIQUE: MRI of the brain was performed utilizing various T1 and T2-weighted sequences in the axial, sagittal, and coronal planes. IV contrast was not administered for this examination. The examination is degraded by motion artifact. FINDINGS: Brain parenchyma: The brain parenchyma is normal in appearance. There is no hemorrhage or mass effect. There is no restricted diffusion to suggest acute ischemia. Lnida-white matter differentiation is preserved. No extra-axial fluid collection is seen. The cerebellar tonsils are normal in configuration. Ventricles, sulci, and cisterns: Normal in configuration. Pituitary and sella: Unremarkable. Intracranial vasculature: Normal flow voids are maintained at the skull base. Orbits: The bony orbits are grossly intact. Orbital contents are normal in appearance. Sinuses and mastoids: Clear. Calvarium: Unremarkable. Soft tissues: There is a left frontal scalp contusion. Cervical cord: Partially visualized cervical spinal cord is normal in morphology and signal intensity. IMPRESSION: No acute intracranial abnormality noting a motion degraded examination. ACT 112: Negative or not required by law. Electronically signed by: Ovidio Jimenez M.D. 11/02/2021 6:03 PM Dictated:11/02/211800 Transcribed: 11/02/211800 HEAD CT NONCONTRAST CT DOSE: HISTORY: Fall. head injury TECHNIQUE: Multiaxial CT images of the head were performed without the use of intravenous contrast. Automated exposure control was utilized for this study. A dose lowering technique was utilized adhering to the principles of ALARA. Comparison: None. Findings: The paranasal sinuses and mastoid air cells are clear. The calvarium and skull base are intact. The ventricles and sulci are within normal limits. There is no mass, hematoma, midline shift, or acute infarct. Left frontal scalp swelling/hematoma. Impression: No acute intracranial abnormality. Left frontal scalp injury. ACT 112: Negative or not required by law. Electronically signed by: Yvan Teresa M.D. 11/02/2021 10:59 AM Dictated:11/02/21 1054 Transcribed: 11/02/[address] chest diagnostic wo con CT DOSE: HISTORY: Fall. Unresponsive. injury head TECHNIQUE: Multiaxial CT images of the chest were performed without contrast. A dose lowering technique was utilized adhering to the principles of ALARA. COMPARISON: None. FINDINGS: Endotracheal tube terminates 2.5 cm from the jomar. Otherwise, the central airways are patent. No pneumothorax. Mild dependent changes seen within the lungs posteriorly. No pleural effusions. No fractures within the visualized osseous structures. Please refer to same day abdomen and pelvis CT for further evaluation of the abdominal structures. Normal esophagus. Normal caliber thoracic aorta. The heart is normal in size. No pericardial effusion. No mediastinal hematoma or lymphadenopathy. IMPRESSION: 1. No acute traumatic process within the chest. 2. Endotracheal tube terminates 2.5 cm from the jomar. ACT 112: Negative or not required by law. Electronically signed by: Yvan Teresa M.D. 11/02/2021 11:23 AM Dictated:11/02/21 1111 Transcribed: 11/02/[address] OF THE CERVICAL SPINE WITHOUT CONTRAST CLINICAL HISTORY: fall COMPARISON STUDY: No previous studies for comparison. TECHNIQUE: Helical axial images of the cervical spine were obtained without IV contrast. Sagittal and coronal reconstructions were viewed. Automated exposure control was utilized for the study. A dose lowering technique was utilized adhering to the principles of ALARA. FINDINGS: There is reversal of the normal cervical lordosis. Vertebral body heights are maintained. No acute cervical spine fracture or subluxation is present. There is no prevertebral edema. Facet joints are intact. Endotracheal tube is partially imaged. C4 and C5 are partially fused. Osteophytosis at C5-C6 is present. IMPRESSION: No acute cervical spine fracture or subluxation. ACT 112: Negative or not required by law. Electronically signed by: Richar Amaya M.D. 11/02/2021 10:59 AM Dictated:11/02/21 1054 Transcribed: 11/02/[address] abd pelvis wo con CLINICAL HISTORY: Status post fall with head injury. Patient unresponsive. COMPARISON STUDY: No previous studies for comparison. CT DOSE: TECHNIQUE: Standard CT of the Abdomen and Pelvis was performed without IV contrast. The patient did not receive oral contrast. A dose lowering technique was utilized adhering to the principles of ALARA. FINDINGS: This is a limited examination due to breathing motion artifact and the patient's arms being by her side. Lung base: The lung bases are clear. Abdominal cavity: There is no evidence for abdominal mass, adenopathy or ascites. Liver: The liver is homogeneous in attenuation on these limited noncontrast images..There are 3, approximately 1 cm low-attenuation lesions within the liver parenchyma which are suspicious for cysts. However, they cannot be fully evaluated by this study. Spleen: The spleen is homogeneous in attenuation on these limited noncontrast images. Pancreas: The pancreas is homogeneous in attenuation on these limited noncontrast images. Gall Bladder: The gallbladder is well distended with no evidence for cholelithiasis, wall thickening or pericholecystic edema.. Adrenal glands: The adrenal glands are normal in size and attenuation on these limited noncontrast images. Kidneys: The kidneys are homogeneous in attenuation on these limited noncontrast images. There is no evidence for gross renal mass, calculus or hydronephrosis bilaterally. Bowel: There is evidence for a small hiatal hernia. The bowel loops are normally placed within the abdomen and pelvis without evidence for dilatation or obstruc tion. There is no evidence for mass lesion. There is mild fecal stasis without impaction or obstruction. There are no inflammatory changes present. There is no evidence for free air. The appendix is not visualized. Bladder: Bauman catheter is present within the bladder. : Uterus appears enlarged. This is also not well evaluated by this study. Vasculature: There is no evidence for focal aneurysmal dilatation of the abdominal aorta. Osseous structures: There is no acute osseous pathology. IMPRESSION: 1. Limited study due to breathing motion artifact and the patient's arms being by her side. 2. Otherwise, no definite acute intra-abdominal or pelvic abnormality on these limited noncontrast images. 3. Nonacute findings are delineated above. ACT 112: Negative or not required by law. Electronically signed by: Robert Stewart M.D. 11/02/2021 11:23 AM Dictated:11/02/21 1115 Transcribed: 11/02/21 1115 Hospital Course (1) Syncope and collapse: (2) Acute encephalopathy: Patient is 35-year-old female with PMH ectopic in 2019 presented to ER for syncope and collapse while walking her dog She said she has been giving plasma twice a week, with most recent was this Status post extubation in the on admission Imaging done on admission were negative MRI showed no acute intracranial abnormality MR venogram of the brain showed normal MR venogram of the brain. Echo showed normal left ventricular systolic function. No significant valvular heart disease EGG showed revealed no evidence for focal generalized encephalopathy no evidence for potential epileptogenic activity. Back to her baseline No neuro focal deficit Neuro consulted Patient understand that she should not drive for the next 6 months Will need to arrange for a Zio Patch as an outpatient Clinically stable to discharge home Leukocytosis Mostly reactive No evidence of infection WBC normalized today Stable DVT on SCD/Ambulate CODE STATUS full code Disposition Plan to discharge home today Total Time Total Time Spent Total Time Spent (In Minutes): 35 minutes Discharge Plan Discharge Items Patient Disposition: Home - Self-Care Reason For Visit: SNYCOPE Discharge Diagnosis: Syncope and collapse Acute encephalopathy Leukocytosis Activity: Resume your previous activity Non-emergency contact: Primary Care Provider and Neurologist Call non-emergency contact if: you have any medication questions Follow-up/Referrals: PCP,NO [Primary Care Provider] - Diet: Regular Addtl Attending Provider Instructions: Follow up with your primary care provider within 1 week Follow up with Neurology Dr. Contreras in 2-3 weeks to set up for an ambulatory EEG. 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 to evaluate for any cardiac rhythm abnormality No driving, bathe alone or swim alone for at least 6 months until no further syncopal episode Avoid any height level activity fall precaution Pending Studies at Discharge: No Stand-Alone Forms: My [facility] Q Interactive, Smoking Cessation Medications and DC Order Prescriptions: Continued multivitamin [Daily Multi-Vitamin] tablet 1 tab PO DAILY RF: 0 ibuprofen 200 mg Tablet 600 mg PO QID PRN (Reason: Pain) RF: 0 Discharge Orders: Discharge Order (Routine); Ordered 11/04/21 Ordered By: Edwina Salgado Admission Data Admit Date/Time: 11/02/21 12:27 Attending Provider: Edwina Salgado Admit Provider: Norbert Hernandez Primary Care Provider: PCP,NO Other Providers: Andrew Cutler ; Norbert Hernandez ; Leigh Ann Contreras Other Interventions: Discharge Summary Assessment (RN) Last Done: 11/04/21 15:59
== END 2021-11-04 16:09 | disposition home or self-care (01) | DRG 312 ==
LOC: MERGE 10:02 → ED 10:02 → EDBD 10:02 → 1E 12:27 → SUATTDRO 12:27 → 1E 14:35 → 2N 11-03 07:55